=== PATIENT | male | born 1960 | race Caucasian/White ===

== ENCOUNTER 2021-08-30 19:15 | Inpatient (IN) | payer OTHER, SELFPAY ==
[2021-08-30 19:36] VITALS: BMI 32.5
[2021-08-30 21:00] VITALS: BP 173/98; PULSE 89; RESP 16; TEMP 36.8; O2SAT 92
[2021-08-30] MEDS: ACETAMINOPHEN 325 MG TABLET 650 MG PO (22:01)
--- NOTE | 2021-08-30 22:04 | DI.RAD.S_ITS ---
PROCEDURE: XR CHEST 1V INDICATIONS: hospital transfer, large Right pneumothorax s/p ct, eval size pneumo TECHNIQUE: One view of the chest was acquired. COMPARISON: [facility], CR, XR CHEST 2 VIEWS, 08/25/2021, 13:49. FINDINGS: Surgical changes and devices: Right-sided chest tube in place. Small residual right apical pneumothorax measures less than 1 cm to the thoracic apex. Minimal right basilar atelectasis. Multiple overlying leads and wires obscure the left lung base. Lungs and pleura: Lungs are clear. No pleural effusions or pneumothorax. Mediastinum: Mediastinal contours appear normal. Heart size is normal. Bones and chest wall: No suspicious bony lesions. Overlying soft tissues appear unremarkable. IMPRESSION: Improving right apically pneumothorax status post chest tube placement. Approved by: Tima Smith M.D. on 08/30/2021 at 22:23
--- NOTE | 2021-08-30 22:12 | P.HP_ITS ---
History of Present Illness History of Present Illness Date Patient Seen: 08/31/21 Time Patient Seen: 22:00 Chief complaint: Numo Thoraic Narrative: Mr. Romano is a 61M with PMH DM, HTN, HL, asthma who began developing shortness of breath about a week ago. He was seen and found to have a small right sided pneumothorax. He denied having any trauma. He was recommended to have outpatient follow up and was not recommended to have a chest tube placed at the time. He de veloped worsening shortness of breath and interval chest xray showed enlarging pneumothorax. He presented to OSH ED with shortness of breath, found to have large right sided pneumothorax and chest tube was placed. There was no bed available and he was transferred for further treatment. In the hospital he was noted to have a Na 131, bili 1.3, creatinine 0.8, alt/ast 100/65, WBC 7.7. COVID negative. On arrival to the hospital here, he state he was feeling some pain with deep respiration on the right sided near the chest tube insertion site. He had no shortness of breath. PMH: DM, HTN, HL Family history: mother with liver failure Social history: former smoker, active daily EtOH user 6 drinks daily Patient History Family & Social History Social History: household members none Prior Living Arrangements House Safety & Behavioral: Feels Safe in Current Yes Environment Been Physically Hurt or No Threatened By a Person Suicidal Ideation Description None Suicide Plan Description No Plan Tobacco & Substance use: Smoking Status Former smoker alcohol intake current alcohol intake frequency 3 or more drinks per day Substance Use Type does not use Meds Home Medications and Allergies Home Medications Medication Instructions Recorded Confirmed Type albuterol sulfate 90 mcg/actuation See Rx Instructions .ROUTE 08/30/21 08/30/21 History aerosol inhaler .COMPLEX PRN atorvastatin 20 mg tablet See Rx Instructions .ROUTE .COMPLEX 08/30/21 08/30/21 History irbesartan 150 See Rx Instructions .ROUTE .COMPLEX 08/30/21 08/30/21 History mg-hydrochlorothiazide 12.5 mg tablet metformin 500 mg tablet,extended See Rx Instructions .ROUTE .COMPLEX 08/30/21 08/30/21 History release 24 hr Allergies Allergy/AdvReac Type Severity Reaction Status Date / Time No Known Drug Allergies Allergy Verified 08/30/21 21:51 Review of Systems Review of Systems Narrative: 14 systems reviewed and negative aside from what is noted in HPI Exam Vital Signs (past 8 hours): - 08/30/21 21:00 08/30/21 23:42 Temperature 98.3 F 99.5 F Pulse Rate 89 79 Respiratory Rate 16 18 Blood Pressure 173/98 H 151/98 H Pulse Oximetry 92 96 Oxygen Delivery Method Nasal Cannula Oxygen Flow Rate 1 Narrative Exam Narrative: GEN: no acute distress HEENT: moist mucous membranes, PERRL NECK: no JVD, trachea midline CV: regular rate and rhythm, no murmurs PULM: clear bilaterally, no wheezes, rhonchi, rales CHEST: R sided chest tube in place ABD: soft, nontender, nondistended, no organomegaly, normal bowel sounds EXT: warm and well perfused with no edema NEURO: awake and alert, with no focal deficits Assessment & Plan Assessment & Plan narrative: Mr. Romano is a 61M with PMH DM, HTN, HL, asthma who developed significant spontaneous pneumothorax. 1. Spontaneous pneumothorax with acute hypoxemic respiratory failure -no history of any trauma -former smoker, likely etiology is ruptured bleb -no history of COPD per patient -chest tube placed in OSH ED with improvement of pneumothorax -follow up chest xray shows mild apical pneumothorax on the right -continue chest tube to suction for now -consult surgery for additional recommendations -repeat xray in am 2. Diabetes, type 2 -hold metformin -ordered insulin sliding scale 3. HTN -hold anti-hypertensives for now 4. HL -continue statin 5. Asthma, mild -not in exacerbation -continue PRN albuterol CODE: Full Proxy: Just Jacqueline, son I have utilized all available resources to reconcile patient's home medications. Time Spent With Patient Critical Care time: I spent a total of [] minutes of critical care time on this patient's care today; this time is exclusive of procedural time. Quality VTE Deep Vein Thrombosis/Pulmonary Embolism Present on Admission: No MIPS - Admit I confirm the patient?s Advance Care Plan is present, Code status is documented, Surrogate decision maker is in patient?s record [If Yes, STOP here]: Yes
[2021-08-30] MEDS: OXYCODONE IR 5 MG TABLET PO (23:37)
[2021-08-30 23:42] VITALS: BP 151/98; PULSE 79; RESP 18; TEMP 37.5; O2SAT 96
[2021-08-31] VITALS (8 sets, daily range): BP systolic 125–150; BP diastolic 71–90; PULSE 77–90; RESP 16–18; TEMP 36.4–38; O2SAT 92–95
[2021-08-31] MEDS: OXYCODONE IR 5 MG TABLET PO ×2 (05:30→20:01)
[2021-08-31 06:22] LABS: Add Manual Diff / Slide Review NO; Basophils Absolute Auto 0 /uL (0-100); Basophils Percent Auto 0.3 % (0-2); Eosinophils Absolute Auto 100 /uL (0-450); Eosinophils Percent Auto 0.7 % (2-4); Hematocrit 42.3 % (41-53); Hemoglobin 14.4 g/dL (13.5-17.5); Lymphocytes Absolute Auto 1500 /uL (1100-4500); Lymphocytes Percent Auto 17.9 % (25-40); Mean Corpuscular HGB Conc 33.9 % (30-36); Mean Corpuscular Hemoglobin 32.9 PG (26-34); Monocytes Absolute Auto 1200 /uL (0-900); Monocytes Percent Auto 14.3 % (3-14); Neutrophils Absolute Auto 5600 /uL (1500-7000); Neutrophils Percent Auto 66.8 % (50-75); Platelet Count 162 X10^3/uL (150-400); Red Blood Cell Count 4.37 X10^6/uL (4.5-5.9); Red Cell Distribution Width 13.9 % (11.6-14.8); White Blood Cell Count 8.4 X10^3/uL (4.5-11.0)
[2021-08-31 06:36] LABS: Alanine Aminotransferase 75 IU/L (<50); Albumin 4.6 g/dL (3.5-5.0); Albumin Globulin Ratio 1.3 (1.0-2.8); Alkaline Phosphatase 68 U/L (38-126); Aspartate Aminotransferase 54 IU/L (17-59); BUN Creatinine Ratio 15.1 (6-22); Bilirubin Total 1.7 mg/dL (0.2-1.3); Blood Urea Nitrogen 11 mg/dL (9-20); Calcium 9.5 mg/dL (8.4-10.2); Carbon Dioxide 32 mmol/L (22-32); Chloride 98 mmol/L (98-107); Estimated Glomerular Filt Rate > 60.0 mL/min (>60); Globulin 3.6 g/dL (1.7-4.1); Glucose 140 mg/dL (80-110); HEMOLYSIS < 15 (0-50); Potassium 3.8 mmol/L (3.4-5.1); Sodium 135 mmol/L (137-145); Total Protein 8.2 g/dL (6.3-8.2)
--- NOTE | 2021-08-31 07:00 | DI.RAD.S_ITS ---
PROCEDURE: XR CHEST 1V INDICATIONS: right pneumothorax s/p chest tube TECHNIQUE: One view of the chest was acquired. COMPARISON: [facility], CR, XR CHEST 2 VIEWS, 08/24/2021, 14:57. [facility], CR, XR CHEST 1V, 08/30/2021, 22:19. FINDINGS: Surgical changes and devices: Right-sided chest tube with the catheter projecting at the right apex. Lungs and pleura: Lungs appear clear. Emphysematous change. No significant pleural effusions or pneumothorax. Mediastinum: Mediastinal contours appear unchanged. Heart size is normal. Bones and chest wall: No suspicious bony lesions. Overlying soft tissues appear unremarkable. IMPRESSION: No pneumothorax demonstrated. Stable position of the right-sided chest tube. Dictated by: Juliocesar Bauman M.D. on 08/31/2021 at 9:56 Approved by: Juliocesar Bauman M.D. on 08/31/2021 at 9:58
[2021-08-31] MEDS: GABAPENTIN 300 MG CAPSULE PO ×3 (08:28→20:01)
[2021-08-31] MEDS: FOLIC ACID 1 MG TABLET PO (08:28)
[2021-08-31] MEDS: chlordiazePOXIDE 10 MG CAPSULE PO (08:28)
[2021-08-31] MEDS: MULTIVITAMIN 1 TABLET 1 TAB PO (08:28)
[2021-08-31] MEDS: THIAMINE 100 MG TABLET PO (08:28)
[2021-08-31] MEDS: SODIUM CHLORIDE 0.9% FLUSH 10 ML IV ×2 (09:02→20:01)
--- NOTE | 2021-08-31 10:39 | PM.CN ---
History of Present Illness Consult details Date Patient Seen: 08/31/21 Time Patient Seen: 14:00 Chief complaint: Pneumothorax Narrative: 61 y.o man transferred from OSH with a right spontaneous pneumothorax with chest tube in place. Hemodynamically stable. CXR from last night shows near resolution of pneumothorax. No previous chest surgery, history of asthma. Meds Home Medications and Allergies Home Medications Medication Instructions Recorded Confirmed Type albuterol sulfate 90 mcg/actuation See Rx Instructions .ROUTE 08/30/21 08/30/21 History aerosol inhaler .COMPLEX PRN atorvastatin 20 mg tablet See Rx Instructions .ROUTE .COMPLEX 08/30/21 08/30/21 History irbesartan 150 See Rx Instructions .ROUTE .COMPLEX 08/30/21 08/30/21 History mg-hydrochlorothiazide 12.5 mg tablet metformin 500 mg tablet,extended See Rx Instructions .ROUTE .COMPLEX 08/30/21 08/30/21 History release 24 hr Allergies Allergy/AdvReac Type Severity Reaction Status Date / Time No Known Drug Allergies Allergy Verified 08/30/21 21:51 Exam Vital Signs (past 8 hours): - 08/31/21 05:00 08/31/21 07:29 08/31/21 08:31 Temperature 99.8 F H 98.7 F Pulse Rate 77 83 Respiratory Rate 18 18 Blood Pressure 146/90 H 149/83 H Pulse Oximetry 93 93 95 Oxygen Delivery Method Nasal Cannula Oxygen Flow Rate 0 Narrative Exam Narrative: Gen-Adult man no acute distress Chest-Air leak in pleuraxac with coughing. Serosanginous drainage. Objective Labs Result Diagrams: 08/31/21 06:00 08/31/21 06:00 Labs: Laboratory Results - last 24 hr 08/31/21 08/31/21 06:00 06:00 WBC 8.4 RBC 4.37 L Hgb 14.4 Hct 42.3 MCV 97.0 MCH 32.9 MCHC 33.9 RDW 13.9 Plt Count 162 Neut % (Auto) 66.8 Lymph % (Auto) 17.9 L [place] % (Auto) 14.3 H Eos % (Auto) 0.7 L Baso % (Auto) 0.3 Neut # (Auto) 5600 Lymph # (Auto) 1500 [place] # (Auto) 1200 H Eos # (Auto) 100 Baso # (Auto) 0 Sodium 135 L Potassium 3.8 Chloride 98 Carbon Dioxide 32 BUN 11 Creatinine 0.73 Estimated GFR > 60.0 BUN/Creatinine Ratio 15.1 Glucose 140 H Calcium 9.5 Total Bilirubin 1.7 H AST 54 ALT 75 H Alkaline Phosphatase 68 Total Protein 8.2 Albumin 4.6 Globulin 3.6 Albumin/Globulin Ratio 1.3 PFSH Social History household members: none Tobacco & Substance Use Smoking Status: Former smoker alcohol intake: current Assessment & Plan Assessment and plan (1) Pneumothorax on right: Status: Acute Assessment & Plan narrative: 61M with a spontaneous right pneumothorax with chest tube. CXR from this AM reviewed no evidence of pneumothorax. On examination air leak in pleuravac observed. Keep chest tube to low wall suction can move to water seal tomorrow AM with CXR to follow. Time Spent With Patient Critical Care time: I spent a total of [] minutes of critical care time on this patient's care today; this time is exclusive of procedural time.
--- NOTE | 2021-08-31 12:09 | P.PN_ITS ---
Subjective Subjective Date Patient Seen: 08/31/21 Interval history: THIS IS A 61-YEAR-OLD MALE WITH NO HISTORY OF RECENT TRAUMA HAS A PAST MEDICAL HISTORY SIGNIFICANT FOR DIABETES, HYPERTENSION, HYPERLIPIDEMIA. HE IS OBESE. TRANSFERED TO THE HOSPITAL WITHIN PNEUMOTHORAX. CHEST TUBE IS IN PLACE. SURGERY TEAM IS ON BOARD THIS MORNING PATIENT FEELING MUCH BETTER DENIES ANY CHEST PAIN NO CHEST PRESSURE NO SHORTNESS OF BREATH NO INCREASING DYSPNEA ON EXERTION NO CHEST PALPITATIONS ALSO DENIES ANY NAUSEA OR VOMITING NO SIGNIFICANT ISSUES OVERNIGHT SINCE ADMISSION Exam Vital Signs (past 8 hours): - 08/31/21 05:00 08/31/21 07:29 08/31/21 08:31 Temperature 99.8 F H 98.7 F Pulse Rate 77 83 Respiratory Rate 18 18 Blood Pressure 146/90 H 149/83 H Pulse Oximetry 93 93 95 Oxygen Delivery Method Nasal Cannula Oxygen Flow Rate 0 Narrative Exam Narrative: NO ACUTE DISTRESS. PATIENT IS ALERT ORIENTED X3. APPEARS MUCH OLDER THAN STATED AGE. OBESE. POOR DENTITION VITAL SIGNS STABLE HEAD ATRAUMATIC NORMOCEPHALIC NECK : SUPPLE WITHOUT ADENOPATHY NO CAROTID BRUITS EYE: EOMI, PERRLA, NORMAL CONJUNCTIVA; NO JAUNDICE CHEST: REGULAR RATE. NO RUBS. PMI IS NON DISPLACED. NO MURMURS; NORMAL S1- S2 PULMONARY: CHEST TUBE IN PLACE ON THE RIGHT. MILD BIBASILAR CRACKLES NOTED; NO INCREASED DULLNESS TO PERCUSSION ABDOMEN: OBESE BUT SOFT. NONTENDER. NONDISTENDED. BOWEL SOUNDS ARE PRESENT IN ALL 4 QUADRANTS. NO MASS. EXTREMITIES: NO EDEMA.. NO CYANOSIS CLUBBING NOTED. NEURO: CRANIAL NERVES 2-12 GROSSLY INTACT. NO FOCAL NEUROLOGICAL DEFICIT NOTED. MSK: NORMAL RANGE OF MOTION FOR AGE. NO JOINT EFFUSION. SKIN: DRESSING NOTED ON THE RIGHT AT THE SITE OF THE CHEST TUBE. NO SIGN OF INFECTION : NORMAL EXTERNAL GENITALIA. PSYCH : APPROPRIATE MOOD AND AFFECT. ALERT AWAKE ORIENTED X3 Objective Labs Result Diagrams: 08/31/21 06:00 08/31/21 06:00 Labs: Laboratory Results - last 24 hr 08/31/21 08/31/21 06:00 06:00 WBC 8.4 RBC 4.37 L Hgb 14.4 Hct 42.3 MCV 97.0 MCH 32.9 MCHC 33.9 RDW 13.9 Plt Count 162 Neut % (Auto) 66.8 Lymph % (Auto) 17.9 L [place] % (Auto) 14.3 H Eos % (Auto) 0.7 L Baso % (Auto) 0.3 Neut # (Auto) 5600 Lymph # (Auto) 1500 [place] # (Auto) 1200 H Eos # (Auto) 100 Baso # (Auto) 0 Sodium 135 L Potassium 3.8 Chloride 98 Carbon Dioxide 32 BUN 11 Creatinine 0.73 Estimated GFR > 60.0 BUN/Creatinine Ratio 15.1 Glucose 140 H Calcium 9.5 Total Bilirubin 1.7 H AST 54 ALT 75 H Alkaline Phosphatase 68 Total Protein 8.2 Albumin 4.6 Globulin 3.6 Albumin/Globulin Ratio 1.3 PFSH Social History household members: none Smoking Status: Former smoker alcohol intake: current Assessment & Plan Assessment & Plan narrative: PROBLEM LIST SPONTANEOUS PNEUMOTHORAX. CHEST TUBE IN PLACE. MORBID OBESITY POSSIBLE COPD WITH SIGNS OF ACUTE EXACERBATION ESSENTIAL HYPERTENSION DIABETES TYPE 2 PER HISTORY. [id number] HYPERLIPIDEMIA PER HISTORY TRANSAMINITIS. MONITOR ONLY FOR NOW PLAN DEFER CHEST TUBE MANAGEMENT TO THE SURGICAL TEAM PATIENT APPEARED TO BE IMPROVING CLINICALLY CHEST X-RAY DONE THIS MORNING SHOWING RESOLUTION OF THE THE PNEUMOTHORAX WILL CONTINUE TO FOLLOW CLOSELY REPEAT CHEST X-RAY AND ABG INDICATED CLINICALLY INCENTIVE SPIROMETER BE ORDERED WHILE AWAKE STRICT BLOOD PRESSURE AND BLOOD SUGAR CONTROL PATIENT WILL BE STARTED BACK ON HOME MEDS HOWEVER WILL HOLD HYDROCHLOROTHIAZIDE CONTINUE METFORMIN WELL ADDING LOSARTAN MOBILIZE PATIENT WELL TOLERATED ADDITIONAL MANAGEMENT PER CLINICAL COURSE DISCHARGE PER CLINICAL COURSE AND SURGICAL TEAM CLEARANCE Time Spent With Patient Critical Care time: I spent a total of [] minutes of critical care time on this patient's care today; this time is exclusive of procedural time. Quality VTE Deep Vein Thrombosis/Pulmonary Embolism Present on Admission: No
[2021-08-31] MEDS: LOSARTAN 25 MG TABLET PO (13:36)
[2021-08-31] MEDS: chlordiazePOXIDE 25 MG CAPSULE PO ×2 (15:13→20:01)
--- NOTE | 2021-08-31 15:56 | CM.DPNOTE ---
DCP/Assessment: Reviewed chart. Patient is a 61yr old male admitted to [facility] with spontaneous pneumothorax requiring chest tube. Primary payor is [facility]. PCP listed on demographic sheet. Met with patient explained CM/SW role. Patient reports that he resides alone in [place]. Patient's significant other/Wanda can assist him if needed at time of d/c. Patient hopeful that he will be able to d/c home once chest tube removed. Patient admits to consuming small amounts of alcohol daily. Patient denies any issues related to drinking alcohol daily. P: Home when stable. KJS Discharge Planning/Care Management CM Discharge Assessment Start: 08/31/21 15:54 Freq: Status: Active Protocol: Document 08/31/21 15:54 KJS (Rec: 08/31/21 15:55 KJS [id number]) Discharge Planning Assessment Assigned Business Process Associate KHOI Black Contact Information Wanda (signifcant other) # [phone] Advance Directives? No History Provided By Patient,Medical Record Prior Living Arrangements House Household Members none Type of transporation used prior to Drives own vehicle admit Independent with ADL's Yes Is patient alert and oriented? Yes Caregiver for Another No Barriers to Discharge No Discharge Plan Home Transportation Arrangement Significant other can provide transport. Whiteboard Updated in Patient Room with Yes name and ext. # of Business Process Associate Review Status In Process Next Review Type Continued Stay Review
--- NOTE | 2021-08-31 17:08 | PC.NURSE ---
Notified by HIDE WASHER that patient had 17 beat run of VTACH. Patient assessed, sitting up in bed having dinner, denies chest pain, palpitations or other complaints. States he is actually feeling pretty well and has been using his Incentive spirometer. BP is 129/76. Dr. Carty notified. No new orders received, continue to monitor.
[2021-08-31] MEDS: METFORMIN HCL 500 MG TABLET PO (17:21)
[2021-08-31] MEDS: ACETAMINOPHEN 325 MG TABLET 650 MG PO (20:00)
[2021-08-31] MEDS: ATORVASTATIN 20 MG TABLET PO (20:02)
[2021-09-01] VITALS (11 sets, daily range): BP systolic 108–153; BP diastolic 70–92; PULSE 76–118; RESP 16–22; TEMP 36.4–37.2; O2SAT 89–95
--- NOTE | 2021-09-01 | DI.RAD.S_ITS ---
PROCEDURE: XR CHEST 1V INDICATIONS: SOB, ??repeat pneumo TECHNIQUE: One view of the chest was acquired. COMPARISON: [facility], CR, XR CHEST 1V, 08/31/2021, 5:07. [facility], CR, XR CHEST 1V, 09/01/2021, 17:51. FINDINGS: Surgical changes and devices: None. Lungs and pleura: Large right pneumothorax. Emphysematous change. Mediastinum: Mediastinal contours appear normal. Heart size is normal. Bones and chest wall: No suspicious bony lesions. Overlying soft tissues appear unremarkable. IMPRESSION: Interval redevelopment of a large right pneumothorax. Comment: Findings were discussed with Dr. Campos of the ED on 09/01/[address] Campos will relay the message to Dr. Clark Dictated by: Jose Luis Dickens M.D. on 09/01/2021 at 20:52 Approved by: Jose Luis Dickens M.D. on 09/01/2021 at 20:56
[2021-09-01] MEDS: OXYCODONE IR 5 MG TABLET PO ×3 (05:16→15:44)
--- NOTE | 2021-09-01 07:45 | DI.RAD.S_ITS ---
PROCEDURE: XR CHEST 1V INDICATIONS: PTX TECHNIQUE: One view of the chest was acquired. COMPARISON: [facility], CR, XR CHEST 1V, 08/31/2021, 5:07. FINDINGS: Surgical changes and devices: Right-sided chest tube is stable. Lungs and pleura: Lungs are clear. No pleural effusions or pneumothorax. Mediastinum: Mediastinal contours appear normal. Heart size is normal. Bones and chest wall: No suspicious bony lesions. Overlying soft tissues appear unremarkable. IMPRESSION: No pneumothorax. Stable right-sided chest tube. Dictated by: Kelly Whitaker MD, PhD on 09/01/2021 at 13:11 Approved by: Kelly Whitaker MD, PhD on 09/01/2021 at 13:12
[2021-09-01] MEDS: ACETAMINOPHEN 325 MG TABLET 650 MG PO (07:57)
[2021-09-01] MEDS: FOLIC ACID 1 MG TABLET PO (08:01)
[2021-09-01] MEDS: MULTIVITAMIN 1 TABLET 1 TAB PO (08:01)
[2021-09-01] MEDS: THIAMINE 100 MG TABLET PO (08:01)
[2021-09-01] MEDS: GABAPENTIN 300 MG CAPSULE PO ×3 (08:01→21:01)
[2021-09-01] MEDS: chlordiazePOXIDE 25 MG CAPSULE PO ×3 (08:07→22:07)
[2021-09-01] MEDS: LOSARTAN 25 MG TABLET PO (08:07)
[2021-09-01] MEDS: METFORMIN HCL 500 MG TABLET PO ×2 (08:09→17:15)
[2021-09-01] MEDS: SODIUM CHLORIDE 0.9% FLUSH 10 ML IV ×2 (08:10→21:02)
--- NOTE | 2021-09-01 08:19 | PM.PN.1 ---
Subjective Subjective Date Patient Seen: 09/01/21 Time Patient Seen: 08:19 Interval history: No interval events. Breathing comfortably. Chest tube to suction yesterday. Exam Vital Signs (past 8 hours): - 09/01/21 01:00 09/01/21 06:00 09/01/21 07:54 Temperature 98.6 F Pulse Rate 76 Respiratory Rate 18 16 Blood Pressure 153/92 H Pulse Oximetry 94 94 09/01/21 08:00 Temperature 98.1 F Pulse Rate 77 Respiratory Rate 16 Blood Pressure 132/77 Pulse Oximetry 94 Oxygen Delivery Method Nasal Cannula Oxygen Flow Rate 1 Narrative Exam Narrative: Adult male with R chest tube serous drainage no air leak. Objective Labs Result Diagrams: 08/31/21 06:00 08/31/21 06:00 [facility] Social History household members: none Smoking Status: Former smoker alcohol intake: current Assessment & Plan Assessment & Plan narrative: 61y.o man with spontaneous R pneumothorax with chest tube no air leak. -Chest tube was switched to water seal this AM, CXR to follow. If no residual pneumothorax will attempt to remove tube this afternoon or tomorrow. Time Spent With Patient Critical Care time: I spent a total of [] minutes of critical care time on this patient's care today; this time is exclusive of procedural time. Quality VTE Deep Vein Thrombosis/Pulmonary Embolism Present on Admission: No
--- NOTE | 2021-09-01 09:01 | PM.PN.1 ---
Subjective Subjective Date Patient Seen: 09/01/21 Interval history: THIS IS A 61-YEAR-OLD MALE WITH NO HISTORY OF RECENT TRAUMA HAS A PAST MEDICAL HISTORY SIGNIFICANT FOR DIABETES, HYPERTENSION, HYPERLIPIDEMIA.? HE IS OBESE. TRANSFERED TO THE HOSPITAL WITHIN PNEUMOTHORAX. CHEST TUBE IS IN PLACE. SURGERY TEAM IS ON BOARD THIS MORNING NO CHEST PAIN NO CHEST PRESSURE NO SHORTNESS OF BREATH NO INCREASING DYSPNEA ON EXERTION NO CHEST PALPITATIONS NO SIGNIFICANT ISSUES OVERNIGHT SINCE ADMISSION Exam Vital Signs (past 8 hours): - 09/01/21 06:00 09/01/21 07:54 09/01/21 08:00 Temperature 98.6 F 98.1 F Pulse Rate 76 77 Respiratory Rate 16 16 Blood Pressure 153/92 H 132/77 Pulse Oximetry 94 94 94 Oxygen Delivery Method Nasal Cannula Oxygen Flow Rate 1 Narrative Exam Narrative: NO ACUTE DISTRESS.? PATIENT IS ALERT ORIENTED X3.? APPEARS MUCH OLDER THAN STATED AGE.? OBESE.? POOR DENTITION VITAL SIGNS STABLE HEAD ATRAUMATIC NORMOCEPHALIC NECK : SUPPLE WITHOUT ADENOPATHY NO CAROTID BRUITS EYE:? EOMI, PERRLA, NORMAL CONJUNCTIVA; NO JAUNDICE CHEST:? REGULAR RATE.? ? NO RUBS.? PMI IS NON DISPLACED.? NO MURMURS; NORMAL S1-S2 PULMONARY:? CHEST TUBE IN PLACE ON THE RIGHT.? MILD BIBASILAR CRACKLES NOTED; NO INCREASED DULLNESS TO PERCUSSION ABDOMEN:? OBESE BUT SOFT.? NONTENDER.? NONDISTENDED.? BOWEL SOUNDS ARE PRESENT IN ALL 4 QUADRANTS.? NO MASS. EXTREMITIES: NO EDEMA..? NO CYANOSIS CLUBBING NOTED. NEURO:? CRANIAL NERVES 2-12 GROSSLY INTACT. NO FOCAL NEUROLOGICAL DEFICIT NOTED. MSK:? NORMAL RANGE OF MOTION FOR AGE.? NO JOINT EFFUSION. SKIN:? DRESSING NOTED ON THE RIGHT AT THE SITE OF THE CHEST TUBE.? NO SIGN OF INFECTION :? NORMAL EXTERNAL GENITALIA. PSYCH :? APPROPRIATE MOOD AND AFFECT.? ALERT AWAKE ORIENTED X3 Objective Labs Result Diagrams: 08/31/21 06:00 08/31/21 06:00 [facility] Social History household members: none Smoking Status: Former smoker alcohol intake: current Assessment & Plan Assessment & Plan narrative: PROBLEM LIST SPONTANEOUS PNEUMOTHORAX.? CHEST TUBE IN PLACE. NOW ON WATER-SEAL MORBID OBESITY. EXTENSIVE COUNSELING GIVEN POSSIBLE COPD WITHOUT SIGNS OF ACUTE EXACERBATION. MONITOR CLOSELY ESSENTIAL HYPERTENSION. CONTINUE HOME MEDS DIABETES TYPE 2 PER HISTORY.? [id number] HYPERLIPIDEMIA PER HISTORY TRANSAMINITIS.? MONITOR ONLY FOR NOW PLAN 09/01 PATIENT REMAINED CLINICALLY IMPROVED ASSISTANCE FROM THE SURGERY TEAM GREATLY APPRECIATED PLAN TO CHANGE TO CHEST TUBE FROM SUCTION TO WATER SEAL IS NOTED WITH A POSSIBLE REMOVAL OF THE CHEST TO EITHER THIS AFTERNOON OR IN THE MORNING IF CLINICALLY INDICATED FOLLOW WITH SERIAL CHEST X-RAY CLOSELY GET ABG IF ANY SIGN OF RESPIRATORY FAILURE DEVELOPS ADDITIONAL MANAGEMENT PER CLINICAL COURSE WILL DISCHARGE ONCE CLEARED BY THE SURGERY TEAM 08/31 DEFER CHEST TUBE MANAGEMENT TO THE SURGICAL TEAM PATIENT APPEARED TO BE IMPROVING CLINICALLY CHEST X-RAY DONE THIS MORNING? SHOWING RESOLUTION OF THE THE PNEUMOTHORAX WILL CONTINUE TO FOLLOW CLOSELY REPEAT CHEST X-RAY AND ABG INDICATED CLINICALLY INCENTIVE SPIROMETER BE ORDERED WHILE AWAKE STRICT BLOOD PRESSURE AND BLOOD SUGAR CONTROL PATIENT WILL BE STARTED BACK ON HOME MEDS HOWEVER WILL HOLD HYDROCHLOROTHIAZIDE CONTINUE METFORMIN WELL ADDING LOSARTAN MOBILIZE PATIENT WELL TOLERATED ADDITIONAL MANAGEMENT PER CLINICAL COURSE DISCHARGE PER CLINICAL COURSE AND SURGICAL TEAM RON Time Spent With Patient Critical Care time: I spent a total of [] minutes of critical care time on this patient's care today; this time is exclusive of procedural time. Quality VTE Deep Vein Thrombosis/Pulmonary Embolism Present on Admission: No
[2021-09-01] MEDS: INSULIN LISPRO 100 UNIT/ML 3ML VIAL SUBCUT (17:13)
--- NOTE | 2021-09-01 17:50 | DI.RAD.S_ITS ---
PROCEDURE: XR CHEST 1V INDICATIONS: chest tube taken out TECHNIQUE: One view of the chest was acquired. COMPARISON: [facility], CR, XR CHEST 1V, 09/01/2021, 8:02. FINDINGS: Surgical changes and devices: None. Lungs and pleura: Severe emphysematous change. No identifiable right pneumothorax. Lungs are clear. No pleural effusions or pneumothorax. Mediastinum: Mediastinal contours appear normal. Heart size is normal. Bones and chest wall: No suspicious bony lesions. Overlying soft tissues appear unremarkable. IMPRESSION: No identifiable right pneumothorax post chest tube removal. Severe emphysematous change. Dictated by: Jose Luis Dickens M.D. on 09/01/2021 at 18:19 Approved by: Jose Luis Dickens M.D. on 09/01/2021 at 18:20
[2021-09-01] MEDS: LORazepam 0.5 MG TABLET PO (21:02)
[2021-09-01] MEDS: ATORVASTATIN 20 MG TABLET PO (21:02)
--- NOTE | 2021-09-01 21:04 | RT ---
Was performing pulse ox checks on pt. At 2024, found pt on RA, SpO2 89%-90%, RR 22, BS clear L > R, absent RML/RLL, HR 118-120. Pt stated before SOB happened, pt went up to use the bathroom and wash hands while using walker, felt fine. When pt sat down in bed, pt suddenly felt SOB. CHARLOTTE Lepe and CHARLOTTE Bell aware. Placed pt on 2 LPM NC, SpO2 increased to 92%-93%, WOB slightly decreased. Informed CARMEN Clark about pt's sudden SOB. CXR ordered for another possible R PNX. At 2054, placed pt on 15 LPM NRB to help with nitrogen wash out to resolve PNX until another possible chest tube insertion. CARMEN Clark aware and is OK with NRB.
--- NOTE | 2021-09-01 21:43 | DI.RAD.S_ITS ---
PROCEDURE: XR CHEST 1V INDICATIONS: chest tube placement TECHNIQUE: One view of the chest was acquired. COMPARISON: [facility], CR, XR CHEST 1V, 09/01/2021, 20:40. FINDINGS: Surgical changes and devices: There is a new right chest tube. Lungs and pleura: There is interval response of the right lung with a persistent small right pneumothorax, decreased from the prior study. There are persistent medial bibasilar opacities consistent with atelectasis or consolidation. No left pneumothorax. No pleural effusions. Mediastinum: There is decreased leftward mediastinal shift. Heart size is normal. Bones and chest wall: No suspicious bony lesions. Overlying soft tissues appear unremarkable. IMPRESSION: 1. Decreased but persistent small right pneumothorax. No evidence of tension. 2. Medial bibasilar opacities consistent with atelectasis or consolidation. Dictated by: Caleb Parker M.D. on 09/01/2021 at 21:58 Approved by: Caleb Parker M.D. on 09/01/2021 at 22:00
[2021-09-01] MEDS: HYDROMORPHONE 0.5 MG INJ 1 MG IV (21:45)
[2021-09-01] MEDS: LORazepam 2 MG/ML INJ IV (21:45)
--- NOTE | 2021-09-01 22:06 | PC.NURSE ---
2044 Pt. C/O anxiety, heart rate 115 & resp. rate 28 elevated. RT was here to checked on Pt. noted & reported to RN that Rt. anterior lobes lung sound was diminished. CXR ordered & hospitalist ordered to transfer pt. closer to ICU. Pt. transferred & report given to Jeannine PORTER.
[2021-09-02] VITALS (9 sets, daily range): BP systolic 116–138; BP diastolic 67–89; PULSE 68–116; RESP 16–20; TEMP 36.4–37.5; O2SAT 94–99
--- NOTE | 2021-09-02 06:50 | PC.NURSE ---
Pt arrived to [facility] in some apparent respiratory distress, vital signs reflecting w/ HTN and tachycardia. Chest tube to be inserted. Pt given ativan 2 mg and dilaudid 1 mg prior to procedure. CT inserted by provider Rajni, set to wall suction, no leak. Pt's discomfort alleviated. Pt stable on 3L NC sat ~93%.
--- NOTE | 2021-09-02 07:45 | DI.RAD.S_ITS ---
PROCEDURE: XR CHEST 1V INDICATIONS: f/u Right pneumothorax TECHNIQUE: One view of the chest was acquired. COMPARISON: [facility], , XR CHEST 1V, 09/01/2021, 21:41. FINDINGS: Surgical changes and devices: Chest right chest tube appears unchanged in position. Lungs and pleura: There is a persistent small right residual pneumothorax which appears unchanged from the prior study. Medial bibasilar opacities are demonstrated consistent with with atelectasis or consolidation. There is slightly increased indistinct opacities peripherally in the right lung which may represent a contusion or re-expansion pulmonary edema. There are suspected small bilateral pleural effusions. Mediastinum: Mediastinal contours appear unchanged. Heart size is normal. Bones and chest wall: No suspicious bony lesions. Overlying soft tissues appear unremarkable. IMPRESSION: 1. Small residual right pneumothorax appears unchanged. 2. Medial bibasilar atelectasis or consolidation. 3. Indistinct peripheral opacities in the right lung suggestive of pulmonary contusion or re-expansion pulmonary edema. Dictated by: Caleb Parker M.D. on 09/02/2021 at 9:14 Approved by: Caleb Parker M.D. on 09/02/2021 at 9:16
[2021-09-02] MEDS: FOLIC ACID 1 MG TABLET PO (08:39)
[2021-09-02] MEDS: METFORMIN HCL 500 MG TABLET PO (08:39)
[2021-09-02] MEDS: chlordiazePOXIDE 25 MG CAPSULE PO (08:39)
[2021-09-02] MEDS: GABAPENTIN 300 MG CAPSULE PO ×3 (08:40→21:39)
[2021-09-02] MEDS: LOSARTAN 25 MG TABLET PO (08:40)
[2021-09-02] MEDS: THIAMINE 100 MG TABLET PO (08:40)
[2021-09-02] MEDS: SODIUM CHLORIDE 0.9% FLUSH 10 ML IV ×2 (08:40→21:41)
[2021-09-02] MEDS: MULTIVITAMIN 1 TABLET 1 TAB PO (08:40)
--- NOTE | 2021-09-02 10:49 | P.PN_ITS ---
Subjective Subjective Date Patient Seen: 09/02/21 Interval history: THIS IS A 61-YEAR-OLD MALE WITH NO HISTORY OF RECENT TRAUMA HAS A PAST MEDICAL HISTORY SIGNIFICANT FOR DIABETES, HYPERTENSION, HYPERLIPIDEMIA.? HE IS OBESE. TRANSFERED TO [facility] WITH PNEUMOTHORAX. CHEST TUBE IS IN PLACE. SURGERY TEAM IS ON BOARD 12 PM CHEST TUBE WAS REMOVED HOWEVER, OVERNIGHT, PATIENT DEVELOPED SOME SHORTNESS OF BREATH PNEUMOTHORAX ONCE AGAIN EXHIBITED ON X-RAY CHEST TUBE REINSERTED. THIS MORNING PATIENT DID NOT HAVE ANY SIGNIFICANT COMPLAINT ? HE HAD SOME QUESTIONS REGARDING WHY THE RECURRENT PNEUMOTHORAX OTHERWISE NO CHEST PAIN NO CHEST PRESSURE NO SHORTNESS OF BREATH NO INCREASING DYSPNEA ON EXERTION NO CHEST PALPITATIONS Exam Vital Signs (past 8 hours): - 09/02/21 04:00 09/02/21 08:00 09/02/21 08:40 Temperature 97.8 F 97.7 F Pulse Rate 84 86 88 Respiratory Rate 18 16 Blood Pressure 138/89 128/76 128/76 Pulse Oximetry 96 94 09/02/21 08:55 Temperature Pulse Rate Respiratory Rate Blood Pressure Pulse Oximetry 95 Oxygen Delivery Method Nasal Cannula Oxygen Flow Rate 3 Narrative Exam Narrative: NO ACUTE DISTRESS.? PATIENT IS ALERT ORIENTED X3.? APPEARS MUCH OLDER THAN STATED AGE.? OBESE.? POOR DENTITION VITAL SIGNS STABLE HEAD ATRAUMATIC NORMOCEPHALIC NECK : SUPPLE WITHOUT ADENOPATHY NO CAROTID BRUITS EYE:? EOMI, PERRLA, NORMAL CONJUNCTIVA; NO JAUNDICE CHEST:? REGULAR RATE.? ? NO RUBS.? PMI IS NON DISPLACED.? NO MURMURS; NORMAL S1- S2 PULMONARY:? CHEST TUBE IN PLACE ON THE RIGHT.? MILD BIBASILAR CRACKLES NOTED; NO WHEEZING. NO RALES . NO CRACKLES ABDOMEN:? OBESE BUT SOFT.? NONTENDER.? NONDISTENDED.? BOWEL SOUNDS ARE PRESENT IN ALL 4 QUADRANTS.? NO MASS. EXTREMITIES: NO EDEMA..? NO CYANOSIS CLUBBING NOTED. NEURO:? CRANIAL NERVES 2-12 GROSSLY INTACT. NO FOCAL NEUROLOGICAL DEFICIT NOTED. MSK:? NORMAL RANGE OF MOTION FOR AGE.? NO JOINT EFFUSION. SKIN:? DRESSING NOTED ON THE RIGHT AT THE SITE OF THE CHEST TUBE.? NO SIGN OF INFECTION :? NORMAL EXTERNAL GENITALIA. PSYCH :? APPROPRIATE MOOD AND AFFECT.? ALERT AWAKE ORIENTED X3 Objective Labs Result Diagrams: 08/31/21 06:00 08/31/21 06:00 [facility] Social History household members: none Smoking Status: Former smoker alcohol intake: current Assessment & Plan Assessment & Plan narrative: PROBLEM LIST SPONTANEOUS PNEUMOTHORAX.? CHEST TUBE REINSERTED 09/01 OVERNIGHT MORBID OBESITY.? EXTENSIVE COUNSELING GIVEN POSSIBLE COPD WITHOUT SIGNS OF ACUTE EXACERBATION.? MONITOR CLOSELY ESSENTIAL HYPERTENSION.? CONTINUE HOME MEDS DIABETES TYPE 2 PER HISTORY.? [id number] HYPERLIPIDEMIA PER HISTORY TRANSAMINITIS.? NO ACUTE INPATIENT TREATMENT INDICATED. MONITOR ONLY FOR NOW POSSIBLE ETOH ABUSE. ON LIBRIUM PLAN 09/02 PATIENT WILL BE KEPT ON WALL CONTINUOUS SUCTION FOR NOW FOLLOW SURGERY TEAM RECOMMENDATIONS MONITOR VITAL SIGNS CLOSELY REPEAT CHEST X-RAYS HERE TO FOLLOW CONSIDER ABG IF INDICATED CLINICALLY WELL WILL GET LABS FOR THE MORNING CONTINUE TO ENCOURAGE PATIENT TO USE INCENTIVE SPIROMETER DEVICE ORDERED PATIENT TO BE OUT OF BED AND IN CHAIR WITH EACH MEAL WILL START TAPERING LIBRIUM. SWITCH FROM LIBRIUM 25 MG T.I.D. TO 10 MG. WILL CONTINUE TO TAPER INDICATED NEEDED ATIVAN ORDERED MONITOR FOR ANY SIGN OF WITHDRAWAL ADDITIONALLY MANAGEMENT PER CLINICAL COURSE 09/01 ?PATIENT REMAINED CLINICALLY IMPROVED ?ASSISTANCE FROM THE? SURGERY TEAM GREATLY APPRECIATED ?PLAN TO? CHANGE TO CHEST TUBE? FROM SUCTION TO WATER SEAL IS NOTED ?WITH A POSSIBLE REMOVAL OF THE CHEST TO EITHER THIS AFTERNOON OR IN THE MORNING IF? CLINICALLY INDICATED ?FOLLOW WITH SERIAL CHEST X-RAY CLOSELY ?GET ABG IF ANY SIGN OF RESPIRATORY FAILURE DEVELOPS ? ADDITIONAL MANAGEMENT PER CLINICAL COURSE ?WILL? DISCHARGE ONCE CLEARED BY THE? SURGERY TEAM 08/31 DEFER CHEST TUBE MANAGEMENT TO THE SURGICAL TEAM PATIENT APPEARED TO BE IMPROVING CLINICALLY CHEST X-RAY DONE THIS MORNING? SHOWING RESOLUTION OF THE THE PNEUMOTHORAX WILL CONTINUE TO FOLLOW CLOSELY REPEAT CHEST X-RAY AND ABG INDICATED CLINICALLY INCENTIVE SPIROMETER BE ORDERED WHILE AWAKE STRICT BLOOD PRESSURE AND BLOOD SUGAR CONTROL PATIENT WILL BE STARTED BACK ON HOME MEDS HOWEVER WILL HOLD HYDROCHLOROTHIAZIDE CONTINUE METFORMIN WELL ADDING LOSARTAN MOBILIZE PATIENT WELL TOLERATED ADDITIONAL MANAGEMENT PER CLINICAL COURSE DISCHARGE PER CLINICAL COURSE AND SURGICAL TEAM CLEARANCE Time Spent With Patient Critical Care time: I spent a total of [] minutes of critical care time on this patient's care today; this time is exclusive of procedural time. Quality VTE Deep Vein Thrombosis/Pulmonary Embolism Present on Admission: No
--- NOTE | 2021-09-02 11:49 | PM.PN.1 ---
Subjective Subjective Date Patient Seen: 09/02/21 Time Patient Seen: 11:50 Interval history: chest tube was removed yesterday afternoon the post pull chest x-ray showed no evidence of pneumothorax however several hours later as he was preparing to discharge he suddenly felt short of breath and there was redemonstration of pneumothorax chest tube was replaced. Feels well this morning Exam Vital Signs (past 8 hours): - 09/02/21 04:00 09/02/21 08:00 09/02/21 08:40 Temperature 97.8 F 97.7 F Pulse Rate 84 86 88 Respiratory Rate 18 16 Blood Pressure 138/89 128/76 128/76 Pulse Oximetry 96 94 09/02/21 08:55 Temperature Pulse Rate Respiratory Rate Blood Pressure Pulse Oximetry 95 Oxygen Delivery Method Nasal Cannula Oxygen Flow Rate 3 Narrative Exam Narrative: Gen-Alert and oriented Chest-small air leak observed. Objective Labs Result Diagrams: 08/31/21 06:00 08/31/21 06:00 [facility] Social History household members: none Smoking Status: Former smoker alcohol intake: current Assessment & Plan Assessment and plan (1) Pneumothorax on right: Status: Acute Plan 61M R pmneumothorax -Chest Tube to low wall suction today -CXR tomorrow morning if no leak can move to water seal. Time Spent With Patient Critical Care time: I spent a total of [] minutes of critical care time on this patient's care today; this time is exclusive of procedural time. Quality VTE Deep Vein Thrombosis/Pulmonary Embolism Present on Admission: No
[2021-09-02] MEDS: ENOXAPARIN 40 MG/0.4 ML SYRINGE SUBCUT (12:52)
[2021-09-02] MEDS: chlordiazePOXIDE 10 MG CAPSULE PO ×2 (15:18→21:39)
[2021-09-02] MEDS: LORazepam 2 MG/ML INJ 1 MG IV (15:18)
[2021-09-02] MEDS: TAMSULOSIN 0.4 MG CAPSULE PO (15:18)
--- NOTE | 2021-09-02 15:34 | PC.NURSE ---
Clemons inserted for urinary retention. Pt anxious during and after. Medicated with lorazepam for anxiety. 1000 ml jordon clear urine drained immediately into clemons after placement. Securement device placed on upper left thigh.
[2021-09-02] MEDS: INSULIN LISPRO 100 UNIT/ML 3ML VIAL SUBCUT (17:28)
[2021-09-02] MEDS: METFORMIN XR 500 MG TABLET 1000 MG PO (17:28)
[2021-09-02] MEDS: ACETAMINOPHEN 325 MG TABLET 650 MG PO (19:59)
[2021-09-02] MEDS: OXYCODONE IR 5 MG TABLET PO (19:59)
[2021-09-02] MEDS: ATORVASTATIN 20 MG TABLET PO (21:39)
[2021-09-02] MEDS: SENNOSIDES 8.6 MG TABLET 17.2 MG PO (21:39)
--- NOTE | 2021-09-02 21:58 | PC.NURSE ---
2100- Right chest tube to 20cm wall suction per order. Small amount of Serosanginous fluid in chamber. Breathsounds appreciated to the right lung posterior in all baugh with crackles. No crepitus appreciated with assessment. Patient on 2 liters cannula will monitor closely.
[2021-09-03] VITALS (7 sets, daily range): BP systolic 116–136; BP diastolic 63–68; PULSE 64–87; RESP 16–20; TEMP 36.7–37.1; O2SAT 94–100
[2021-09-03 06:03] LABS: Add Manual Diff / Slide Review NO; Basophils Absolute Auto 0 /uL (0-100); Basophils Percent Auto 0.5 % (0-2); Eosinophils Absolute Auto 200 /uL (0-450); Eosinophils Percent Auto 2.3 % (2-4); Hematocrit 37.7 % (41-53); Hemoglobin 12.9 g/dL (13.5-17.5); Lymphocytes Absolute Auto 1500 /uL (1100-4500); Lymphocytes Percent Auto 20.8 % (25-40); Mean Corpuscular HGB Conc 34.1 % (30-36); Mean Corpuscular Hemoglobin 33.3 PG (26-34); Mean Corpuscular Volume 97.6 fL (80-100); Monocytes Absolute Auto 1000 /uL (0-900); Monocytes Percent Auto 13.3 % (3-14); Neutrophils Absolute Auto 4500 /uL (1500-7000); Neutrophils Percent Auto 63.1 % (50-75); Platelet Count 150 X10^3/uL (150-400); Red Blood Cell Count 3.87 X10^6/uL (4.5-5.9); Red Cell Distribution Width 13.9 % (11.6-14.8); White Blood Cell Count 7.2 X10^3/uL (4.5-11.0)
[2021-09-03 06:11] LABS: Alanine Aminotransferase 59 IU/L (<50); Albumin 3.9 g/dL (3.5-5.0); Albumin Globulin Ratio 1.1 (1.0-2.8); Alkaline Phosphatase 60 U/L (38-126); Aspartate Aminotransferase 72 IU/L (17-59); BUN Creatinine Ratio 23.5 (6-22); Bilirubin Total 0.7 mg/dL (0.2-1.3); Blood Urea Nitrogen 16 mg/dL (9-20); Calcium 9.2 mg/dL (8.4-10.2); Carbon Dioxide 30 mmol/L (22-32); Chloride 101 mmol/L (98-107); Estimated Glomerular Filt Rate > 60.0 mL/min (>60); Globulin 3.4 g/dL (1.7-4.1); Glucose 134 mg/dL (80-110); HEMOLYSIS < 15 (0-50); Phosphorous 4.2 mg/dL (2.3-3.7); Potassium 3.8 mmol/L (3.4-5.1); Sodium 138 mmol/L (137-145); Total Protein 7.3 g/dL (6.3-8.2)
[2021-09-03] MEDS: polyethylene glycoL 3350 17 GM POWD.PACK PO (08:27)
[2021-09-03] MEDS: ENOXAPARIN 40 MG/0.4 ML SYRINGE SUBCUT (08:27)
[2021-09-03] MEDS: THIAMINE 100 MG TABLET PO (08:28)
[2021-09-03] MEDS: TAMSULOSIN 0.4 MG CAPSULE PO (08:28)
[2021-09-03] MEDS: MULTIVITAMIN 1 TABLET 1 TAB PO (08:28)
[2021-09-03] MEDS: GABAPENTIN 300 MG CAPSULE PO (08:28)
[2021-09-03] MEDS: SENNOSIDES 8.6 MG TABLET 17.2 MG PO ×2 (08:28→21:37)
[2021-09-03] MEDS: LOSARTAN 25 MG TABLET PO (08:28)
[2021-09-03] MEDS: FOLIC ACID 1 MG TABLET PO (08:28)
[2021-09-03] MEDS: chlordiazePOXIDE 10 MG CAPSULE PO (08:28)
[2021-09-03] MEDS: SODIUM CHLORIDE 0.9% FLUSH 10 ML IV ×2 (08:29→21:38)
[2021-09-03] MEDS: METFORMIN XR 500 MG TABLET 1000 MG PO ×2 (08:32→16:39)
[2021-09-03] MEDS: OXYCODONE IR 5 MG TABLET PO ×2 (11:04→21:37)
--- NOTE | 2021-09-03 11:50 | PM.PN.1 ---
Subjective Subjective Date Patient Seen: 09/03/21 Interval history: 61-year-old male with type 2 diabetes, hypertension and hyperlipidemia, history of asthma admitted due to right pneumothorax. Patient has chest tube to low suction. He denies chest pain or shortness of breath. He did require Amaya placed 09/02 for acute urinary retention and started on tamsulosin. Exam Vital Signs (past 8 hours): - 09/03/21 05:00 09/03/21 08:00 09/03/21 08:45 Temperature 98.2 F 98.1 F Pulse Rate 64 77 Respiratory Rate 18 18 Blood Pressure 116/65 116/64 Pulse Oximetry 100 95 94 Oxygen Delivery Method Nasal Cannula Oxygen Flow Rate 2 Narrative Exam Narrative: General: Alert and pleasant in no distress Lungs: Clear Heart: Regular rhythm Extremities: No edema Objective Labs Result Diagrams: 09/03/21 05:25 09/03/21 05:25 Labs: Laboratory Results - last 24 hr 09/03/21 09/03/21 05:25 05:25 WBC 7.2 RBC 3.87 L Hgb 12.9 L Hct 37.7 L MCV 97.6 MCH 33.3 MCHC 34.1 RDW 13.9 Plt Count 150 Neut % (Auto) 63.1 Lymph % (Auto) 20.8 L [place] % (Auto) 13.3 Eos % (Auto) 2.3 Baso % (Auto) 0.5 Neut # (Auto) 4500 Lymph # (Auto) 1500 [place] # (Auto) 1000 H Eos # (Auto) 200 Baso # (Auto) 0 Sodium 138 Potassium 3.8 Chloride 101 Carbon Dioxide 30 BUN 16 Creatinine 0.68 Estimated GFR > 60.0 BUN/Creatinine Ratio 23.5 H Glucose 134 H Calcium 9.2 Phosphorus 4.2 H Total Bilirubin 0.7 AST 72 H ALT 59 H Alkaline Phosphatase 60 Total Protein 7.3 Albumin 3.9 Globulin 3.4 Albumin/Globulin Ratio 1.1 PFSH Social History household members: none Smoking Status: Former smoker alcohol intake: current Assessment & Plan Assessment & Plan narrative: 1. Right lung spontaneous pneumothorax -chest tube reinserted on 09/01 -chest x-ray this a.m. -await recommendations from surgery 2. Acute urinary retention -Amaya placed 09/02 -tamsulosin started -attempt Amaya removal tomorrow 3. History of ETOH abuse -no evidence of ETOH withdrawal -discontinue Librium and gabapentin 4. Hypertension, stable -continue med 5. Diabetes, well controlled -continue metformin DVT prophylaxis: On Lovenox Time Spent With Patient Critical Care time: I spent a total of [] minutes of critical care time on this patient's care today; this time is exclusive of procedural time. Quality VTE Deep Vein Thrombosis/Pulmonary Embolism Present on Admission: No
--- NOTE | 2021-09-03 11:54 | DI.RAD.S_ITS ---
PROCEDURE: XR CHEST 1V INDICATIONS: f/u ptx TECHNIQUE: One view of the chest was acquired. COMPARISON: [facility], , XR CHEST 1V, 09/02/2021, 7:46. FINDINGS: Surgical changes and devices: A right chest tube is seen, however has been pulled out relative to the prior x-ray on 09/02/2021. The side port is now at the ribs. Lungs and pleura: Diffuse bilateral airspace opacities are seen. No pneumothorax or pleural effusion. Mediastinum: Mediastinal contours appear normal. Heart size is normal. Bones and chest wall: No suspicious bony lesions. Overlying soft tissues appear unremarkable. IMPRESSION: 1. Chest tube has retracted and the side port is now at the level of the ribs. 2. No residual pneumothorax. Dictated by: Bladimir Gonzalez M.D. on 09/03/2021 at 11:58 Approved by: Bladimir Gonzalez M.D. on 09/03/2021 at 12:00
--- NOTE | 2021-09-03 12:50 | CM.DPC ---
DCP Cont: Per MD and Surgeon, attempted chest tube removal and plan of d/c on 09/01/21 but then prior to d/c pt became SOB and chest tube had to be reinserted. Chest tube remains in place and invasive cardiovascular technologist just completed bedside xray to determine medical needs and if chest tube can be switched to water seal. Pt was having urinary retention and currently has clemons cath in place and currently on 2LO2 NC. SW met bedside with pt and explained role and he confirms he is feeling better and still has multiple friends to assist and check on him at d/c and a friend to provide transport home at d/c and he currently does not have concerns with d/c to home when medically stable. Pt is ambulating independently and steady and tolerating diet. Plan: SW to follow for xray results and Surgeon recommendations towards determining when chest tube can be removed and timeline for d/c to home and any further identified discharge planning needs. KHOI Gomez
--- NOTE | 2021-09-03 14:23 | PC.NURSE ---
Day shift: Pt given print out from [employer] on pneumothorax (the basics) at this time.
--- NOTE | 2021-09-03 15:36 | P.PN_ITS ---
Subjective Subjective Date Patient Seen: 09/03/21 Interval history: No complaints Chest x-ray this morning shows no pneumothorax but the sentinel hole appears to be close to the chest wall Exam Vital Signs (past 8 hours): - 09/03/21 08:00 09/03/21 08:45 09/03/21 13:17 Temperature 98.1 F 98.8 F Pulse Rate 77 79 Respiratory Rate 18 16 Blood Pressure 116/64 123/68 Pulse Oximetry 95 94 96 Oxygen Delivery Method Nasal Cannula Oxygen Flow Rate 2 Narrative Exam Narrative: No acute distress Normal respiratory effort Chest tube shows no evidence of an air leak Objective Labs Result Diagrams: 09/03/21 05:25 09/03/21 05:25 Labs: Laboratory Results - last 24 hr 09/03/21 09/03/21 05:25 05:25 WBC 7.2 RBC 3.87 L Hgb 12.9 L Hct 37.7 L MCV 97.6 MCH 33.3 MCHC 34.1 RDW 13.9 Plt Count 150 Neut % (Auto) 63.1 Lymph % (Auto) 20.8 L [place] % (Auto) 13.3 Eos % (Auto) 2.3 Baso % (Auto) 0.5 Neut # (Auto) 4500 Lymph # (Auto) 1500 [place] # (Auto) 1000 H Eos # (Auto) 200 Baso # (Auto) 0 Sodium 138 Potassium 3.8 Chloride 101 Carbon Dioxide 30 BUN 16 Creatinine 0.68 Estimated GFR > 60.0 BUN/Creatinine Ratio 23.5 H Glucose 134 H Calcium 9.2 Phosphorus 4.2 H Total Bilirubin 0.7 AST 72 H ALT 59 H Alkaline Phosphatase 60 Total Protein 7.3 Albumin 3.9 Globulin 3.4 Albumin/Globulin Ratio 1.1 PFSH Social History household members: none Smoking Status: Former smoker alcohol intake: current Assessment & Plan Assessment and plan (1) Pneumothorax on right: Status: Acute Plan Chest tube to water seal Chest x-ray in the morning Time Spent With Patient Critical Care time: I spent a total of [] minutes of critical care time on this patient's care today; this time is exclusive of procedural time. Quality VTE Deep Vein Thrombosis/Pulmonary Embolism Present on Admission: No
[2021-09-03] MEDS: ACETAMINOPHEN 325 MG TABLET 650 MG PO (16:26)
[2021-09-03] MEDS: ATORVASTATIN 20 MG TABLET PO (21:36)
[2021-09-03] MEDS: MELATONIN 3 MG TABLET 9 MG PO (23:54)
[2021-09-04] VITALS (10 sets, daily range): BP systolic 121–143; BP diastolic 61–87; PULSE 76–89; RESP 16–20; TEMP 36.4–37.3; O2SAT 90–99
[2021-09-04] MEDS: OXYCODONE IR 5 MG TABLET PO ×4 (03:45→21:54)
--- NOTE | 2021-09-04 03:54 | DI.RAD.S_ITS ---
PROCEDURE: XR CHEST 1V INDICATIONS: dimished breath sounds/rt pnumo/chest tube TECHNIQUE: One view of the chest was acquired. COMPARISON: [facility], CR, XR CHEST 1V, 09/03/2021, 12:34. FINDINGS: Surgical changes and devices: None. Lungs and pleura: Atelectasis in the right lung. The left lung is clear. A new 50-60% pneumothorax on the right. No mediastinal shift or tracheal deviation. Mediastinum: Mediastinal contours appear normal. Heart size is normal. Bones and chest wall: No suspicious bony lesions. Overlying soft tissues appear unremarkable. IMPRESSION: 1. Partial collapse of the right lung with 50-60% pneumothorax on the right. No mediastinal shift. 2. The left lung is well expanded and clear. Findings were conveyed to the emergency department at the time of preliminary interpretation. Comment: Final report is concordant with preliminary interpretation by [facility] Dictated by: Bladimir Gonzalez M.D. on 09/04/2021 at 6:58 Approved by: Bladimir Gonzalez M.D. on 09/04/2021 at 7:00
--- NOTE | 2021-09-04 05:14 | DI.RAD.S_ITS ---
PROCEDURE: XR CHEST 1V INDICATIONS: RT PNEUMOTHORAX TECHNIQUE: One view of the chest was acquired. COMPARISON: [facility], , XR CHEST 1V, 09/04/2021, 3:56. FINDINGS: Surgical changes and devices: A chest tube is seen, but does not appear fully within the right chest. Lungs and pleura: There is atelectasis of the right lung. The left lung is clear. Right-sided 50% pneumothorax is seen. Mediastinum: Mediastinal contours appear normal. Heart size is normal. Bones and chest wall: No suspicious bony lesions. Overlying soft tissues appear unremarkable. IMPRESSION: 1. Right pneumothorax with 50-60% collapse. No mediastinal shift. 2. The left lung is well expanded. 3. Right-sided chest tube is seen but is not fully within the right chest. Dictated by: Bladimir Gonzalez M.D. on 09/04/2021 at 7:02 Approved by: Bladimir Gonzalez M.D. on 09/04/2021 at 7:03
[2021-09-04] MEDS: LORazepam 2 MG/ML INJ IV (05:37)
[2021-09-04] MEDS: HYDROMORPHONE 0.5 MG INJ 1 MG IV (05:37)
[2021-09-04] MEDS: LIDOCAINE 2% INJ MDV 20 ML (05:38)
--- NOTE | 2021-09-04 05:51 | DI.RAD.S_ITS ---
PROCEDURE: XR CHEST 1V INDICATIONS: check new chest tube placement TECHNIQUE: One view of the chest was acquired. COMPARISON: [facility], , XR CHEST 1V, 09/04/2021, 5:16. FINDINGS: Surgical changes and devices: Interval repositioning of a right-sided chest tube. Lungs and pleura: Large right pneumothorax has improved. The left lung is clear. Mediastinum: Mediastinal contours appear normal. Heart size is normal. Bones and chest wall: No suspicious bony lesions. Overlying soft tissues appear unremarkable. IMPRESSION: There is been repositioning of the right large bore chest tube. Pneumothorax is unchanged. Comment: Final report is concordant with preliminary interpretation by [facility] Dictated by: Bladimir Gonzalez M.D. on 09/04/2021 at 7:00 Approved by: Bladimir Gonzalez M.D. on 09/04/2021 at 7:01
--- NOTE | 2021-09-04 06:26 | DI.CT.S_ITS ---
PROCEDURE: CT CHEST WO CON INDICATIONS: pneumothorax TECHNIQUE: Noncontrast 5 mm thick sections acquired from the pulmonary apices to the posterior costophrenic angles. 1 mm lung window, 5 mm thick coronal and sagittal and 7 mm axial MIP reformats were then acquired. For radiation dose reduction, the following was used: automated exposure control, adjustment of mA and/or kV according to patient size. COMPARISON: None. FINDINGS: A chest tube enters the right anterolateral chest but does not enter the right chest cavity, terminating posterior to the right posterior 5th rib on series 7, image 61 and series 2, image 24. There is a large right pneumothorax. Consolidation and atelectasis are seen in much of the right lung. The left lung and pleural space are predominantly clear. Normal heart size. Four-vessel coronary atherosclerosis. Normal caliber thoracic aorta and main pulmonary trunk. No threshold enlarged thoracic lymph node identified in the absence of IV contrast. No acute finding in the partially included upper abdomen. IMPRESSION: Large right pneumothorax. The currently right-sided chest tube is misplaced and does not enter the chest cavity. Dictated by: Demetri Heredia M.D. on 09/04/2021 at 9:19 Approved by: Demetri Heredia M.D. on 09/04/2021 at 9:22
--- NOTE | 2021-09-04 06:28 | PM.OP.1 ---
Operative Date/Time/Diagnoses Date of procedure: 09/04/21 Time of procedure: 06:28 Pre-op diagnosis: Right pneumothorax Post-op diagnosis: same Procedure & Clinicians Procedure: Right tube thoracostomy Same procedure as scheduled: Yes Indications: Right pneumothorax Surgeon: Raul Mcmillan Anesthesia Type: Local Operative Notes Estimated Blood Loss (mL): 5 Procedure in detail: The right chest was prepped and draped in the usual fashion. The old chest tube was removed. A 3 cm incision was created over roughly the 7th rib slightly lateral and posterior to the nipple. Additional local was injected along the rib itself. A 20 [place] trocar chest tube was inserted into the chest and the trocar was partially withdrawn. The tube was directed laterally and towards the apex of the lung. The trocar was removed completely. Chest tube was sutured to the skin and connected to the collection chamber. The chest tube was secured to the skin with a an Ethibond suture and a 2-0 silk U-stitch was placed in left untied for future closure. Dressings were applied. A chest x-ray was performed which showed the tube in the chest. There was residual apical pneumothorax.
[2021-09-04] MEDS: INSULIN LISPRO 100 UNIT/ML 3ML VIAL SUBCUT ×3 (09:28→16:31)
[2021-09-04] MEDS: SENNOSIDES 8.6 MG TABLET 17.2 MG PO ×2 (09:38→20:08)
[2021-09-04] MEDS: LOSARTAN 25 MG TABLET PO (09:38)
[2021-09-04] MEDS: TAMSULOSIN 0.4 MG CAPSULE PO (09:38)
[2021-09-04] MEDS: MULTIVITAMIN 1 TABLET 1 TAB PO (09:38)
[2021-09-04] MEDS: polyethylene glycoL 3350 17 GM POWD.PACK PO (09:38)
[2021-09-04] MEDS: FOLIC ACID 1 MG TABLET PO (09:38)
[2021-09-04] MEDS: ENOXAPARIN 40 MG/0.4 ML SYRINGE SUBCUT (09:39)
[2021-09-04] MEDS: METFORMIN XR 500 MG TABLET 1000 MG PO ×2 (09:42→16:30)
[2021-09-04] MEDS: SODIUM CHLORIDE 0.9% FLUSH 10 ML IV ×3 (09:44→20:15)
[2021-09-04] MEDS: HYDROMORPHONE 1 MG INJ IV (10:36)
--- NOTE | 2021-09-04 10:59 | DI.RAD.S_ITS ---
PROCEDURE: XR CHEST 1V INDICATIONS: Chest tube placement TECHNIQUE: One view of the chest was acquired. COMPARISON: [facility], CT, CT CHEST WO CON, 09/04/2021, 8:19. [facility], CR, XR CHEST 1V, 09/04/2021, 5:53. FINDINGS: Right-sided pneumothorax has markedly decreased, now small at the apex. Right large bore chest tube projects over the right lower chest with distal tip projecting over the medial right lung. Airspace opacities in the right lung base are noted. Left lung and pleural space are clear. IMPRESSION: Markedly decreased size of right pneumothorax seen previously, now small at the apex. Dictated by: Demetri Heredia M.D. on 09/04/2021 at 11:32 Approved by: Demetri Heredia M.D. on 09/04/2021 at 11:38
[2021-09-04] MEDS: BACITRACIN 28 GM OINT 1 APPLIC TOP ×2 (11:18→20:06)
--- NOTE | 2021-09-04 11:25 | PM.PN.1 ---
Subjective Subjective Date Patient Seen: 09/04/21 Interval history: 61-year-old male with type 2 diabetes, hypertension and hyperlipidemia, history of asthma admitted due to right pneumothorax. Patient had recurrent large pneumothorax noted on CT this morning. Dr. Urban removed old chest tube and inserted new chest tube. He also closed the initial chest tube incision from the ED which he thinks was causing a sucking pneumothorax. Exam Vital Signs (past 8 hours): - 09/04/21 04:56 09/04/21 07:40 09/04/21 08:00 Temperature 97.6 F 98.3 F Pulse Rate 87 80 87 Respiratory Rate 20 20 16 Blood Pressure 127/84 134/87 Pulse Oximetry 94 93 90 L Oxygen Delivery Method Nasal Cannula Oxygen Flow Rate 2 Narrative Exam Narrative: Exam this a.m. prior to new chest tube General: Alert NAD Lungs: Diminished on the right Cardiac: Regular rhythm Extremities: No edema Objective Labs Result Diagrams: 09/03/21 05:25 09/03/21 05:25 [facility] Social History household members: none Smoking Status: Former smoker alcohol intake: current Assessment & Plan Assessment & Plan narrative: 1.? Right lung spontaneous pneumothorax -chest tube has now been reinserted several times likely due to open area above the 1st chest tube insertion -follow-up chest x-ray post chest tube drain surgeon -O2 PRN -hydromorphone and lorazepam as needed 2. Acute urinary retention -Amaya placed 09/02 -tamsulosin started -attempt Amaya removal prior to discharge 3. History of ETOH abuse -no evidence of ETOH withdrawal -discontinued Librium and gabapentin 4. Hypertension, stable -continue med 5.? Diabetes, well controlled -continue metformin DVT prophylaxis:? On Lovenox Time Spent With Patient Critical Care time: I spent a total of [] minutes of critical care time on this patient's care today; this time is exclusive of procedural time. Quality VTE Deep Vein Thrombosis/Pulmonary Embolism Present on Admission: No
--- NOTE | 2021-09-04 11:28 | P.PN_ITS ---
Subjective Subjective Date Patient Seen: 09/04/21 Time Patient Seen: 11:29 Interval history: Previous chest tube dislodged overnight. A new chest tube was placed however it was not within the thoracic cavity. Feels short of breath this morning. Exam Vital Signs (past 8 hours): - 09/04/21 04:56 09/04/21 07:40 09/04/21 08:00 Temperature 97.6 F 98.3 F Pulse Rate 87 80 87 Respiratory Rate 20 20 16 Blood Pressure 127/84 134/87 Pulse Oximetry 94 93 90 L Oxygen Delivery Method Nasal Cannula Oxygen Flow Rate 2 Narrative Exam Narrative: General adult male alert oriented mild distress Chest inferior chest tube was replaced into the thoracic cavity and there was the instant release of air and tidal in within the tube system. The superior chest wound was cleaned with chlorhexidine the tissue repaired and then the skin was closed with interrupted nylon suture. Objective Labs Result Diagrams: 09/03/21 05:25 09/03/21 05:25 [facility] Social History household members: none Smoking Status: Former smoker alcohol intake: current Assessment & Plan Assessment and plan (1) Pneumothorax on right: Status: Acute Assessment & Plan narrative: 61-year-old man with a recurring spontaneous right pneumothorax. Currently there is a chest tube that is adequately working. I suspect that a large component of his recurring pneumothorax was a sucking chest wound through the previous superior chest incision. The skin has been closed here to prevent that from happening again. Keep chest tube to low wall suction today chest x- ray tomorrow if that looks okay then switch to water seal. Bacitracin to superior chest wound and 2 days of Ancef written for mild cellulitis Time Spent With Patient Critical Care time: I spent a total of [] minutes of critical care time on this patient's care today; this time is exclusive of procedural time. Quality VTE Deep Vein Thrombosis/Pulmonary Embolism Present on Admission: No
[2021-09-04] MEDS: CEFAZOLIN 2 GM/20 ML SYRINGE IV ×2 (12:24→18:30)
[2021-09-04] MEDS: ATORVASTATIN 20 MG TABLET PO (20:08)
[2021-09-04] MEDS: MELATONIN 3 MG TABLET 9 MG PO (20:08)
[2021-09-04] MEDS: ACETAMINOPHEN 325 MG TABLET 650 MG PO (21:54)
[2021-09-05] VITALS (9 sets, daily range): BP systolic 120–140; BP diastolic 70–82; PULSE 62–81; RESP 16–20; TEMP 36.8–37.3; O2SAT 92–96
[2021-09-05] MEDS: CEFAZOLIN 2 GM/20 ML SYRINGE IV ×3 (02:12→18:32)
[2021-09-05] MEDS: OXYCODONE IR 5 MG TABLET 10 MG PO (02:13)
[2021-09-05] MEDS: polyethylene glycoL 3350 17 GM POWD.PACK PO (08:39)
[2021-09-05] MEDS: FOLIC ACID 1 MG TABLET PO (08:40)
[2021-09-05] MEDS: SENNOSIDES 8.6 MG TABLET 17.2 MG PO ×2 (08:40→20:57)
[2021-09-05] MEDS: TAMSULOSIN 0.4 MG CAPSULE PO (08:40)
[2021-09-05] MEDS: MULTIVITAMIN 1 TABLET 1 TAB PO (08:40)
[2021-09-05] MEDS: LOSARTAN 25 MG TABLET PO (08:40)
[2021-09-05] MEDS: ENOXAPARIN 40 MG/0.4 ML SYRINGE SUBCUT (08:41)
[2021-09-05] MEDS: BACITRACIN 28 GM OINT 1 APPLIC TOP ×2 (08:41→21:07)
[2021-09-05] MEDS: SODIUM CHLORIDE 0.9% FLUSH 10 ML IV ×4 (08:42→21:19)
[2021-09-05] MEDS: METFORMIN XR 500 MG TABLET 1000 MG PO ×2 (08:44→17:18)
--- NOTE | 2021-09-05 09:58 | DI.RAD.S_ITS ---
PROCEDURE: XR CHEST 1V INDICATIONS: Chest tube to water seal TECHNIQUE: One view of the chest was acquired. COMPARISON: [facility], , XR CHEST 1V, 09/04/2021, 11:20. FINDINGS: Surgical changes and devices: A right-sided chest tube is seen with the side port within the right hemithorax. Lungs and pleura: There is a persistent right pneumothorax, unchanged compared to the prior study yesterday. Mediastinum: Mediastinal contours appear normal. Heart size is normal. Bones and chest wall: No suspicious bony lesions. Overlying soft tissues appear unremarkable. IMPRESSION: The right-sided chest tube in good position with persistent right pneumothorax. Dictated by: Bladimir Gonzalez M.D. on 09/05/2021 at 9:32 Approved by: Bladimir Gonzalez M.D. on 09/05/2021 at 9:35
--- NOTE | 2021-09-05 09:59 | PM.PN.1 ---
Subjective Subjective Date Patient Seen: 09/05/21 Time Patient Seen: 10:01 Interval history: no overnight issues Exam Vital Signs (past 8 hours): - 09/05/21 04:00 09/05/21 07:38 09/05/21 07:56 Temperature 98.5 F 98.7 F Pulse Rate 62 71 Respiratory Rate 18 16 Blood Pressure 128/78 120/71 Pulse Oximetry 95 95 95 09/05/21 08:40 Temperature Pulse Rate 75 Respiratory Rate Blood Pressure 120/71 Pulse Oximetry Oxygen Delivery Method Nasal Cannula Oxygen Flow Rate 0 Narrative Exam Narrative: Chest Tube-no air leak Objective Labs Result Diagrams: 09/03/21 05:25 09/03/21 05:25 [facility] Social History household members: none Smoking Status: Former smoker alcohol intake: current Assessment & Plan Assessment & Plan narrative: 61M with recurrent R pneumothorax -Chest tube to water seal today -Follow up CXR ordered -Anticipate chest tube removal tomorrow Time Spent With Patient Critical Care time: I spent a total of [] minutes of critical care time on this patient's care today; this time is exclusive of procedural time. Quality VTE Deep Vein Thrombosis/Pulmonary Embolism Present on Admission: No
--- NOTE | 2021-09-05 12:57 | PM.PN.1 ---
Subjective Subjective Date Patient Seen: 09/05/21 Time Patient Seen: 10:00 Interval history: Today he denies shortness of breath. He has some pain at chest tube insertion site. He still has chest tube, was to suction. Surgery came by earlier today and placed chest tube to water seal. Xray pending. Exam Vital Signs (past 8 hours): - 09/05/21 07:38 09/05/21 07:56 09/05/21 08:40 Temperature 98.7 F Pulse Rate 71 75 Respiratory Rate 16 Blood Pressure 120/71 120/71 Pulse Oximetry 95 95 09/05/21 11:00 Temperature 98.5 F Pulse Rate 77 Respiratory Rate 17 Blood Pressure 121/74 Pulse Oximetry 96 Oxygen Delivery Method Nasal Cannula Oxygen Flow Rate 0 Narrative Exam Narrative: General: no acute distress Lungs: clear bilaterally Cardiac: Regular rhythm Extremities: No edema Objective Labs Result Diagrams: 09/03/21 05:25 09/03/21 05:25 [facility] Social History household members: none Smoking Status: Former smoker alcohol intake: current Assessment & Plan Assessment & Plan narrative: 1.? Right lung spontaneous pneumothorax -chest tube has now been reinserted several times likely due to open area above the 1st chest tube insertion -follow-up chest x-ray post chest tube drain surgeon -O2 PRN -hydromorphone and lorazepam as needed 2. Acute urinary retention -Amaya placed 09/02 -tamsulosin started -attempt Amaya removal prior to discharge 3. History of ETOH abuse -no evidence of ETOH withdrawal -discontinued Librium and gabapentin 4. Hypertension, stable -continue med 5.? Diabetes, well controlled -continue metformin Time Spent With Patient Critical Care time: I spent a total of [] minutes of critical care time on this patient's care today; this time is exclusive of procedural time. Quality VTE Deep Vein Thrombosis/Pulmonary Embolism Present on Admission: No
--- NOTE | 2021-09-05 13:21 | PC.NURSE ---
Day shift: Per Dr Mitchell ok to leave current IV (Rt AC) in place.
[2021-09-05] MEDS: OXYCODONE IR 5 MG TABLET PO ×2 (14:18→20:56)
[2021-09-05] MEDS: MELATONIN 3 MG TABLET 9 MG PO (20:57)
[2021-09-05] MEDS: ATORVASTATIN 20 MG TABLET PO (20:57)
--- NOTE | 2021-09-05 23:45 | PC.NURSE ---
SHIFT: Report received, care assumed 1914. Pt. A&Ox4. Right thoracic chest tube to water seal. Lung sounds auscultated, no crepitus auscultated or palpated. Moderate pain at chest tube site. Superior to current drain, in axillary area, old insertion site noted; HARJINDER, CDI. Pt encouraged to get OOB and move around with assistance. Verbalizes understanding, declines at this time. Repositions self in bed.
[2021-09-06] VITALS (7 sets, daily range): BP systolic 109–134; BP diastolic 69–74; PULSE 64–88; RESP 15–18; TEMP 36.6–37.4; O2SAT 90–93
[2021-09-06] MEDS: OXYCODONE IR 5 MG TABLET PO ×2 (01:49→09:31)
[2021-09-06] MEDS: CEFAZOLIN 2 GM/20 ML SYRINGE IV (04:19)
--- NOTE | 2021-09-06 08:20 | DI.RAD.S_ITS ---
PROCEDURE: XR CHEST 1V INDICATIONS: eval for pneumothorax TECHNIQUE: One view of the chest was acquired. COMPARISON: [facility], CT, CT CHEST WO CON, 09/04/2021, 8:19. [facility], CR, XR CHEST 1V, 09/05/2021, 10:06. [facility], CR, XR CHEST 1V, 09/04/2021, 11:20. FINDINGS: Surgical changes and devices: Right-sided chest tube with the catheter in the mid thorax, (previously projected more inferiorly). Lungs and pleura: Emphysematous change. Mild hazy opacity at the right lung base which has the appearance of atelectasis. Small right pleural effusion. The previously seen right-sided pneumothorax is no longer appreciated. Mediastinum: Mediastinal contours appear unchanged. No midline shift. Heart size is normal. Bones and chest wall: No suspicious bony lesions. Small volume of right subcutaneous emphysema. IMPRESSION: Right-sided pneumothorax is no longer appreciated. Right-sided chest tube with the catheter tip projecting at the mid thorax. Suspect small right pleural effusion and right basilar atelectasis. Dictated by: Juliocesar Bauman M.D. on 09/06/2021 at 15:23 Approved by: Juliocesar Bauman M.D. on 09/06/2021 at 15:27
[2021-09-06] MEDS: polyethylene glycoL 3350 17 GM POWD.PACK PO (09:31)
[2021-09-06] MEDS: FOLIC ACID 1 MG TABLET PO (09:31)
[2021-09-06] MEDS: SENNOSIDES 8.6 MG TABLET 17.2 MG PO ×2 (09:31→21:12)
[2021-09-06] MEDS: ENOXAPARIN 40 MG/0.4 ML SYRINGE SUBCUT (09:31)
[2021-09-06] MEDS: TAMSULOSIN 0.4 MG CAPSULE PO (09:31)
[2021-09-06] MEDS: MULTIVITAMIN 1 TABLET 1 TAB PO (09:31)
[2021-09-06] MEDS: LOSARTAN 25 MG TABLET PO (09:32)
[2021-09-06] MEDS: SODIUM CHLORIDE 0.9% FLUSH 10 ML IV ×2 (09:33→21:20)
[2021-09-06] MEDS: METFORMIN XR 500 MG TABLET 1000 MG PO ×2 (09:35→18:42)
[2021-09-06] MEDS: BACITRACIN 28 GM OINT 1 APPLIC TOP ×2 (09:37→21:21)
--- NOTE | 2021-09-06 11:37 | PM.PN.1 ---
Subjective Subjective Date Patient Seen: 09/06/21 Time Patient Seen: 11:38 Interval history: sitting in chair. Pain at CT site with cough. Has a productive cough. Exam Vital Signs (past 8 hours): - 09/06/21 07:12 09/06/21 07:30 09/06/21 11:30 Temperature 98.1 F 99.3 F Pulse Rate 64 84 Respiratory Rate 15 16 Blood Pressure 134/71 113/74 Pulse Oximetry 93 93 90 L Oxygen Delivery Method Room Air Oxygen Flow Rate 0 Narrative Exam Narrative: CXR show full expansion of right lung. Small air leak w cough. Productive cough unsolicted Objective Labs Result Diagrams: 09/03/21 05:25 09/03/21 05:25 [facility] Social History household members: none Smoking Status: Former smoker alcohol intake: current Assessment & Plan Assessment & Plan narrative: Right Chest tube for treatment of recurrent spontaneous PTX. Air leak demo'd Plan: leave chest tube another day. Time Spent With Patient Time with patient: less than 30 minutes Critical Care time: I spent a total of [] minutes of critical care time on this patient's care today; this time is exclusive of procedural time. Quality VTE Deep Vein Thrombosis/Pulmonary Embolism Present on Admission: No
--- NOTE | 2021-09-06 12:28 | P.PN_ITS ---
Subjective Subjective Date Patient Seen: 09/06/21 Time Patient Seen: 09:00 Interval history: Today he has pain at insertion site. He has no shortness of breath. Chest tube with small air leak with cough. Exam Vital Signs (past 8 hours): - 09/06/21 07:12 09/06/21 07:30 09/06/21 11:30 Temperature 98.1 F 99.3 F Pulse Rate 64 84 Respiratory Rate 15 16 Blood Pressure 134/71 113/74 Pulse Oximetry 93 93 90 L Oxygen Delivery Method Room Air Oxygen Flow Rate 0 Narrative Exam Narrative: General: no acute distress Lungs: clear bilaterally Cardiac: Regular rhythm Extremities: No edema Objective Labs Result Diagrams: 09/03/21 05:25 09/03/21 05:25 [facility] Social History household members: none Smoking Status: Former smoker alcohol intake: current Assessment & Plan Assessment & Plan narrative: 1.? Right lung spontaneous pneumothorax -chest tube has now been reinserted several times likely due to open area above the 1st chest tube insertion -follow-up chest x-ray post chest tube drain surgeon -O2 PRN -hydromorphone and lorazepam as needed 2. Acute urinary retention -Amaya placed 09/02 -tamsulosin started -attempt Amaya removal prior to discharge 3. History of ETOH abuse -no evidence of ETOH withdrawal -discontinued Librium and gabapentin 4. Hypertension, stable -continue med 5.? Diabetes, well controlled -continue metformin Time Spent With Patient Critical Care time: I spent a total of [] minutes of critical care time on this patient's care today; this time is exclusive of procedural time. Quality VTE Deep Vein Thrombosis/Pulmonary Embolism Present on Admission: No
--- NOTE | 2021-09-06 12:46 | PC.NURSE ---
PT ENCOURAGED TO GET U P FROM BED AND AMBULATE IN HALLWAY THEN RETURNED TO CHAIR FOR LUNCH TIME MEAL- PAIN CONTROLLED WITH PO OXYCODONE 5MG - BACITRATION APPLIED TO PREVIOUS CHEST TUBE INSERTION SITE
[2021-09-06] MEDS: OXYCODONE IR 5 MG TABLET 10 MG PO ×2 (13:24→21:12)
[2021-09-06] MEDS: ATORVASTATIN 20 MG TABLET PO (21:13)
[2021-09-06] MEDS: MELATONIN 3 MG TABLET 9 MG PO (21:13)
[2021-09-07] VITALS (8 sets, daily range): BP systolic 105–132; BP diastolic 54–76; PULSE 69–99; RESP 16–20; TEMP 36.6–37.2; O2SAT 92–96
--- NOTE | 2021-09-07 01:16 | PC.NURSE ---
Addendum entered by Ny Marshall R.N. 09/07/21 06:27: Amaya was discontinued last night ~1930. Pt still has not voided as of 0600. Bladder scan demonstrates 376ml; will allow more time. Original Note: SHIFT: Report received, care assumed 1914. Pt up in chair, A&Ox4, VSS. Able to transfer/ambulate with one-person assist to manage his chest tube. CT to water seal, dressing CDI. No crepitus ausculatated or palpated. Breath sounds heard throughout. Pain at the site with movement. Using IS.
[2021-09-07] MEDS: OXYCODONE IR 5 MG TABLET 10 MG PO ×4 (05:26→23:48)
--- NOTE | 2021-09-07 07:00 | DI.RAD.S_ITS ---
PROCEDURE: XR CHEST 1V INDICATIONS: pneumothorax TECHNIQUE: One view of the chest was acquired. COMPARISON: [facility], CR, XR CHEST 1V, 09/06/2021, 8:21. FINDINGS: Surgical changes and devices: Stable positioning of right-sided thoracostomy tube. Lungs and pleura: Persistent streaky bibasilar opacities likely representing atelectasis. Minimal blunting of the costophrenic angles suggestive of small bilateral pleural effusions. Possible tiny right upper lung/apically pneumothorax. Mediastinum: Mediastinal contours appear stable. Heart size is normal. Bones and chest wall: No suspicious bony lesions. Overlying soft tissues appear unremarkable. IMPRESSION: Stable position of right-sided thoracostomy tube with possible tiny right upper lung/apically pneumothorax. Streaky bibasilar opacities with blunting of the costophrenic angles compatible with bibasilar atelectasis with small pleural effusions. Dictated by: Dale Bustillos M.D. on 09/07/2021 at 7:54 Approved by: Dale Bustillos M.D. on 09/07/2021 at 7:56
[2021-09-07] MEDS: TAMSULOSIN 0.4 MG CAPSULE PO (08:31)
[2021-09-07] MEDS: polyethylene glycoL 3350 17 GM POWD.PACK PO (08:31)
[2021-09-07] MEDS: SENNOSIDES 8.6 MG TABLET 17.2 MG PO ×2 (08:31→20:10)
[2021-09-07] MEDS: LOSARTAN 25 MG TABLET PO (08:32)
[2021-09-07] MEDS: MULTIVITAMIN 1 TABLET 1 TAB PO (08:32)
[2021-09-07] MEDS: FOLIC ACID 1 MG TABLET PO (08:32)
[2021-09-07] MEDS: ENOXAPARIN 40 MG/0.4 ML SYRINGE SUBCUT (08:32)
[2021-09-07] MEDS: BACITRACIN 28 GM OINT 1 APPLIC TOP ×2 (08:34→21:10)
[2021-09-07] MEDS: METFORMIN XR 500 MG TABLET 1000 MG PO ×2 (08:35→17:10)
[2021-09-07] MEDS: HYDROMORPHONE 1 MG INJ IV (13:41)
--- NOTE | 2021-09-07 15:40 | PM.PN.1 ---
Subjective Subjective Date Patient Seen: 09/07/21 Time Patient Seen: 15:40 Interval history: Frustrated and anxious Exam Vital Signs (past 8 hours): - 09/07/21 08:00 09/07/21 12:00 Temperature 98.9 F 98.6 F Pulse Rate 69 74 Respiratory Rate 18 16 Blood Pressure 127/76 105/54 L Pulse Oximetry 93 93 Oxygen Delivery Method Room Air Oxygen Flow Rate 0 Narrative Exam Narrative: good size air leak on chest tube Const General: cooperative and comfortable HENMT Head: normocephalic and atraumatic Face and sinus: normal facial exam Eyes General: appearance normal, both eyes and all related structures Neck Neck: trachea midline Chest Chest: normal inspection of the chest Resp Effort & Inspection: normal respiratory effort and able to speak in complete sentences Auscultation: clear to auscultation bilaterally Cardio Rate: regular rate Rhythm: regular rhythm GI Inspection: normal to inspection Skin General: no rashes or lesions noted Neuro General: patient alert and patient oriented x3 Cognition: normal cognition Extrem General: normal to inspection and full ROM Psych Appearance: grossly normal Judgment: judgment good Objective Labs Result Diagrams: 09/03/21 05:25 09/03/21 05:25 [facility] Social History household members: none Smoking Status: Former smoker alcohol intake: current Assessment & Plan Assessment & Plan narrative: 61 yo male with persistent air leak. Bleb disease scene on CT chest. Plan: discuss with Murtaza Aguiar for possible surgical intervention that would require transfer. COVID-19 COVID-19 status: Negative Time Spent With Patient Time with patient: 30 to 49 minutes with 50% spent counseling/coordinating care Critical Care time: I spent a total of [] minutes of critical care time on this patient's care today; this time is exclusive of procedural time. Quality VTE Deep Vein Thrombosis/Pulmonary Embolism Present on Admission: No
--- NOTE | 2021-09-07 16:46 | PM.PN.1 ---
Subjective Subjective Date Patient Seen: 09/07/21 Time Patient Seen: 08:00 Interval history: He feels well. He has no shortness of breath. He has controlled pain at chest tube site. Exam Vital Signs (past 8 hours): - 09/07/21 12:00 Temperature 98.6 F Pulse Rate 74 Respiratory Rate 16 Blood Pressure 105/54 L Pulse Oximetry 93 Oxygen Delivery Method Room Air Oxygen Flow Rate 0 Narrative Exam Narrative: General: no acute distress Lungs: clear bilaterally Cardiac: Regular rhythm Extremities: No edema Objective Labs Result Diagrams: 09/03/21 05:25 09/03/21 05:25 [facility] Social History household members: none Smoking Status: Former smoker alcohol intake: current Assessment & Plan Assessment & Plan narrative: 1.? Right lung spontaneous pneumothorax -chest tube has now been reinserted several times likely due to open area above the 1st chest tube insertion -follow-up chest x-ray post chest tube drain surgeon -O2 PRN -hydromorphone and lorazepam as needed 2. Acute urinary retention -Amaya placed 09/02 -tamsulosin started -attempt Amaya removal prior to discharge 3. History of ETOH abuse -no evidence of ETOH withdrawal -discontinued Librium and gabapentin 4. Hypertension, stable -continue med 5.? Diabetes, well controlled -continue metformin Time Spent With Patient Critical Care time: I spent a total of [] minutes of critical care time on this patient's care today; this time is exclusive of procedural time. Quality VTE Deep Vein Thrombosis/Pulmonary Embolism Present on Admission: No
--- NOTE | 2021-09-07 18:35 | PC.NURSE ---
Addendum entered by Marla Contreras R.N. 09/07/21 19:05: bladder scanned for 792cc urine in/out catheter for 925mls Original Note: PT WITHOUT VOID FOR SEVERAL HOURS AFTER CATHETER REMOVAL- HE STATES HE HAS URINATED X 2 NONE VISUALIZED BY STAFF- AWAITING BLADDER SCAN BY FRUIT PRESERVER AT THIS TIME- DID MOVE BOWELS AND INCREASED OXYCODONE DOSE TO 10MG WHICH HAS BEEN EFFECTIVE - IV DOSE OF 1MG DILAUDID GIVEN PRIOR TO PLANNED CHEST TUBE REMOVAL BUT DR LE ASSESSED CONTINUED AIR LEAK AND CHOSE TO TAKE DOWN DRESSING AND REAPPLY AFTER VIEWING CHEST CT- DECISION MADE TO LEAVE CHEST TUBE IN -
[2021-09-07] MEDS: ATORVASTATIN 20 MG TABLET PO (20:10)
[2021-09-07] MEDS: MELATONIN 3 MG TABLET 9 MG PO (20:10)
[2021-09-07] MEDS: SODIUM CHLORIDE 0.9% FLUSH 10 ML IV (20:20)
[2021-09-08 01:15] VITALS: BP 140/72; PULSE 70; RESP 18; TEMP 36.8; O2SAT 92
[2021-09-08] MEDS: OXYCODONE IR 5 MG TABLET 10 MG PO (03:47)
[2021-09-08 05:00] VITALS: BP 146/72; PULSE 71; RESP 18; TEMP 36.7; O2SAT 95
--- NOTE | 2021-09-08 06:11 | PC.NURSE ---
Patient unable to void on his own after several attempts. Bladder scan results showed 571ml. In/out cath 610 ml.
[2021-09-08 08:00] VITALS: BP 117/69; PULSE 66; RESP 17; TEMP 36.3
--- NOTE | 2021-09-08 09:27 | PM.PN.1 ---
Subjective Subjective Date Patient Seen: 09/08/21 Time Patient Seen: 06:30 Interval history: No changes except urinary retention Exam Vital Signs (past 8 hours): - 09/08/21 05:00 09/08/21 08:00 Temperature 98.1 F 97.3 F L Pulse Rate 71 66 Respiratory Rate 18 17 Blood Pressure 146/72 H 117/69 Pulse Oximetry 95 Oxygen Delivery Method Room Air Oxygen Flow Rate 0 Narrative Exam Narrative: bilateral BS, on going air leak Objective Labs Result Diagrams: 09/03/21 05:25 09/03/21 05:25 [facility] Social History household members: none Smoking Status: Former smoker alcohol intake: current Assessment & Plan Assessment & Plan narrative: Bleb disease of bilateral lungs. Stopped smoking 15 years ago. On going airleak that will require intervention. Discussed with Dr Aguiar at [facility] Thoracic surgery for transfer. continue chest tube on water seal. Time Spent With Patient Critical Care time: I spent a total of [] minutes of critical care time on this patient's care today; this time is exclusive of procedural time. Quality VTE Deep Vein Thrombosis/Pulmonary Embolism Present on Admission: No
[2021-09-08] MEDS: METFORMIN XR 500 MG TABLET 1000 MG PO ×2 (09:58→17:52)
[2021-09-08] MEDS: GABAPENTIN 300 MG CAPSULE PO ×2 (09:59→20:30)
[2021-09-08] MEDS: ENOXAPARIN 40 MG/0.4 ML SYRINGE SUBCUT (09:59)
[2021-09-08] MEDS: FOLIC ACID 1 MG TABLET PO (09:59)
[2021-09-08] MEDS: MULTIVITAMIN 1 TABLET 1 TAB PO (09:59)
[2021-09-08] MEDS: TAMSULOSIN 0.4 MG CAPSULE 0.8 MG PO (09:59)
[2021-09-08] MEDS: LOSARTAN 25 MG TABLET PO (10:00)
[2021-09-08] MEDS: SODIUM CHLORIDE 0.9% FLUSH 10 ML IV ×2 (10:01→20:31)
[2021-09-08] MEDS: BACITRACIN 28 GM OINT 1 APPLIC TOP ×2 (10:02→20:31)
[2021-09-08] MEDS: CELECOXIB 200 MG CAPSULE PO ×2 (10:02→20:36)
[2021-09-08 12:00] VITALS: BP 130/70; PULSE 73; RESP 16; TEMP 36.8; O2SAT 94
--- NOTE | 2021-09-08 12:35 | PM.PN.1 ---
Subjective Subjective Date Patient Seen: 09/08/21 Time Patient Seen: 08:00 Interval history: Today he denies any shortness of breath or pain. He is awaiting transfer to repair pneumothorax Exam Vital Signs (past 8 hours): - 09/08/21 05:00 09/08/21 08:00 09/08/21 12:00 Temperature 98.1 F 97.3 F L 98.3 F Pulse Rate 71 66 73 Respiratory Rate 18 17 16 Blood Pressure 146/72 H 117/69 130/70 Pulse Oximetry 95 94 Oxygen Delivery Method Room Air Oxygen Flow Rate 0 Narrative Exam Narrative: General: no acute distress Lungs: clear bilaterally Cardiac: Regular rhythm Extremities: No edema Objective Labs Result Diagrams: 09/03/21 05:25 09/03/21 05:25 [facility] Social History household members: none Smoking Status: Former smoker alcohol intake: current Assessment & Plan Assessment & Plan narrative: 1.? Right lung spontaneous pneumothorax -chest tube has now been reinserted several times likely due to open area above the 1st chest tube insertion -O2 PRN -hydromorphone and lorazepam as needed -patient has ongoing air leak in chest tube, discussed with general surgeon who recommends transfer for repair with CT surgery 2. Acute urinary retention -Amaya placed 09/02 -tamsulosin started -attempt Amaya removal prior to discharge 3. History of ETOH abuse -no evidence of ETOH withdrawal -discontinued Librium and gabapentin 4. Hypertension, stable -continue med 5.? Diabetes, well controlled -continue metformin Time Spent With Patient Critical Care time: I spent a total of [] minutes of critical care time on this patient's care today; this time is exclusive of procedural time. Quality VTE Deep Vein Thrombosis/Pulmonary Embolism Present on Admission: No
[2021-09-08 16:00] VITALS: BP 105/71; PULSE 74; RESP 16; TEMP 36.2; O2SAT 94
[2021-09-08 20:00] VITALS: BP 140/75; PULSE 68; RESP 18; TEMP 36.6; O2SAT 96
[2021-09-08] MEDS: SENNOSIDES 8.6 MG TABLET 17.2 MG PO (20:30)
[2021-09-08] MEDS: ATORVASTATIN 20 MG TABLET PO (20:30)
[2021-09-08] MEDS: MELATONIN 3 MG TABLET 9 MG PO (20:31)
[2021-09-09] VITALS (7 sets, daily range): BP systolic 107–127; BP diastolic 63–76; PULSE 61–75; RESP 16–18; TEMP 36–37; O2SAT 94–98
[2021-09-09] MEDS: TAMSULOSIN 0.4 MG CAPSULE 0.8 MG PO (09:00)
[2021-09-09] MEDS: ENOXAPARIN 40 MG/0.4 ML SYRINGE SUBCUT (09:01)
[2021-09-09] MEDS: CELECOXIB 200 MG CAPSULE PO ×2 (09:02→21:12)
[2021-09-09] MEDS: LOSARTAN 25 MG TABLET PO (09:03)
[2021-09-09] MEDS: GABAPENTIN 300 MG CAPSULE PO ×2 (09:03→21:12)
[2021-09-09] MEDS: MULTIVITAMIN 1 TABLET 1 TAB PO (09:03)
[2021-09-09] MEDS: FOLIC ACID 1 MG TABLET PO (09:04)
[2021-09-09] MEDS: BACITRACIN 28 GM OINT 1 APPLIC TOP ×2 (09:05→21:12)
[2021-09-09] MEDS: METFORMIN XR 500 MG TABLET 1000 MG PO ×2 (09:17→17:01)
[2021-09-09] MEDS: SODIUM CHLORIDE 0.9% FLUSH 10 ML IV ×2 (10:19→21:13)
--- NOTE | 2021-09-09 11:37 | PM.PN.1 ---
Subjective Subjective Date Patient Seen: 09/09/21 Time Patient Seen: 11:37 Interval history: no issues Exam Vital Signs (past 8 hours): - 09/09/21 06:11 09/09/21 08:07 09/09/21 09:03 Temperature 97.2 F L 98.1 F Pulse Rate 61 61 61 Respiratory Rate 17 16 Blood Pressure 125/63 122/72 122/72 Pulse Oximetry 94 95 Oxygen Delivery Method Room Air Oxygen Flow Rate 0 Narrative Exam Narrative: unchanged Objective Labs Result Diagrams: 09/03/21 05:25 09/03/21 05:25 [facility] Social History household members: none Smoking Status: Former smoker alcohol intake: current Assessment & Plan Assessment & Plan narrative: Recommend transfer to [facility] for surgery with Dr. Murtaza Aguiar. Dr. Aguiar will return on Monday, but hospitalist should be asked to accept and general surgery to consult until he is back. Time Spent With Patient Critical Care time: I spent a total of [] minutes of critical care time on this patient's care today; this time is exclusive of procedural time. Quality VTE Deep Vein Thrombosis/Pulmonary Embolism Present on Admission: No
--- NOTE | 2021-09-09 13:50 | P.PN_ITS ---
Subjective Subjective Date Patient Seen: 09/09/21 Time Patient Seen: 08:00 Interval history: Today he has no complaints. No chest pain, no shortness of breath. Exam Vital Signs (past 8 hours): - 09/09/21 06:11 09/09/21 08:07 09/09/21 09:03 Temperature 97.2 F L 98.1 F Pulse Rate 61 61 61 Respiratory Rate 17 16 Blood Pressure 125/63 122/72 122/72 Pulse Oximetry 94 95 09/09/21 12:00 Temperature 98.6 F Pulse Rate 75 Respiratory Rate 16 Blood Pressure 127/76 Pulse Oximetry 98 Oxygen Delivery Method Room Air Oxygen Flow Rate 0 Narrative Exam Narrative: General: no acute distress Lungs: clear bilaterally, right chest tube in place Cardiac: Regular rhythm Extremities: No edema Objective Labs Result Diagrams: 09/03/21 05:25 09/03/21 05:25 [facility] Social History household members: none Smoking Status: Former smoker alcohol intake: current Assessment & Plan Assessment & Plan narrative: 1.? Right lung spontaneous pneumothorax -chest tube has now been reinserted several times likely due to open area above the 1st chest tube insertion -O2 PRN -hydromorphone and lorazepam as needed -patient has ongoing air leak in chest tube, discussed with general surgeon who recommends transfer for repair with CT surgery 2. Acute urinary retention -Amaya placed 09/02 -tamsulosin started -attempt Amaya removal prior to discharge 3. History of ETOH abuse -no evidence of ETOH withdrawal -discontinued Librium and gabapentin 4. Hypertension, stable -continue med 5.? Diabetes, well controlled -continue metformin Time Spent With Patient Critical Care time: I spent a total of [] minutes of critical care time on this patient's care today; this time is exclusive of procedural time. Quality VTE Deep Vein Thrombosis/Pulmonary Embolism Present on Admission: No
--- NOTE | 2021-09-09 16:22 | PC.NURSE ---
Patient has been up independently 3x during the shift so far to void, unmeasured.
[2021-09-09] MEDS: ATORVASTATIN 20 MG TABLET PO (21:12)
[2021-09-09] MEDS: MELATONIN 3 MG TABLET 9 MG PO (21:12)
[2021-09-10 04:00] VITALS: BP 109/68; PULSE 76; RESP 16; TEMP 36.6; O2SAT 97
[2021-09-10] MEDS: OXYCODONE IR 5 MG TABLET 10 MG PO (06:01)
[2021-09-10 08:00] VITALS: BP 119/69; PULSE 59; RESP 17; TEMP 36.4; O2SAT 95
[2021-09-10] MEDS: METFORMIN XR 500 MG TABLET 1000 MG PO ×2 (08:11→17:05)
[2021-09-10] MEDS: BACITRACIN 28 GM OINT 1 APPLIC TOP ×2 (09:38→21:02)
[2021-09-10] MEDS: GABAPENTIN 300 MG CAPSULE PO ×2 (09:38→20:58)
[2021-09-10] MEDS: FOLIC ACID 1 MG TABLET PO (09:38)
[2021-09-10] MEDS: CELECOXIB 200 MG CAPSULE PO ×2 (09:38→20:58)
[2021-09-10] MEDS: ENOXAPARIN 40 MG/0.4 ML SYRINGE SUBCUT (09:38)
[2021-09-10] MEDS: MULTIVITAMIN 1 TABLET 1 TAB PO (09:39)
[2021-09-10] MEDS: SODIUM CHLORIDE 0.9% FLUSH 10 ML IV ×2 (09:39→21:03)
[2021-09-10] MEDS: LOSARTAN 25 MG TABLET PO (09:39)
[2021-09-10] MEDS: TAMSULOSIN 0.4 MG CAPSULE 0.8 MG PO (09:39)
--- NOTE | 2021-09-10 10:49 | PM.PN.1 ---
Subjective Subjective Date Patient Seen: 09/10/21 Time Patient Seen: 08:00 Interval history: No change in his symptoms. No pain, no cough, no shortness of breath. Exam Vital Signs (past 8 hours): - 09/10/21 04:00 09/10/21 08:00 Temperature 97.8 F 97.5 F L Pulse Rate 76 59 L Respiratory Rate 16 17 Blood Pressure 109/68 119/69 Pulse Oximetry 97 95 Oxygen Delivery Method Room Air Oxygen Flow Rate 0 Narrative Exam Narrative: General: no acute distress Lungs: clear bilaterally, right chest tube in place Cardiac: Regular rhythm Extremities: No edema Objective Labs Result Diagrams: 09/03/21 05:25 09/03/21 05:25 [facility] Social History household members: none Smoking Status: Former smoker alcohol intake: current Assessment & Plan Assessment & Plan narrative: 1.? Right lung spontaneous pneumothorax -chest tube has now been reinserted several times likely due to open area above the 1st chest tube insertion -O2 PRN -hydromorphone and lorazepam as needed -patient has ongoing air leak in chest tube, discussed with general surgeon who recommends transfer for repair with CT surgery 2. Acute urinary retention -Amaya placed 09/02 -tamsulosin started -attempt Amaya removal prior to discharge 3. History of ETOH abuse -no evidence of ETOH withdrawal -discontinued Librium and gabapentin 4. Hypertension, stable -continue med 5.? Diabetes, well controlled -continue metformin Time Spent With Patient Critical Care time: I spent a total of [] minutes of critical care time on this patient's care today; this time is exclusive of procedural time. Quality VTE Deep Vein Thrombosis/Pulmonary Embolism Present on Admission: No
[2021-09-10 12:00] VITALS: BP 154/77; PULSE 61; RESP 16; TEMP 36.4; O2SAT 94
--- NOTE | 2021-09-10 14:34 | CM.DPNOTE ---
DCP Note Chart Review. Patient awaiting transfer to [facility] for surgery; patient has ongoing air leak in chest tube, which general surgeon recommends transfer for repair with CT surgery CM team will plan to reassess DC needs if patient remains at for ongoing medical management JW
[2021-09-10 17:30] VITALS: BP 125/65; PULSE 65; RESP 18; TEMP 36.6; O2SAT 96
[2021-09-10 20:00] VITALS: BP 174/63; PULSE 71; RESP 18; TEMP 37.1; O2SAT 97
[2021-09-10 20:30] VITALS: PULSE 71; RESP 16; O2SAT 97
[2021-09-10] MEDS: ATORVASTATIN 20 MG TABLET PO (20:58)
[2021-09-10] MEDS: MELATONIN 3 MG TABLET 9 MG PO (20:58)
[2021-09-11] VITALS (9 sets, daily range): BP systolic 112–138; BP diastolic 56–72; PULSE 59–70; RESP 15–18; TEMP 36.4–36.8; O2SAT 94–97
[2021-09-11] MEDS: OXYCODONE IR 5 MG TABLET 10 MG PO (04:14)
--- NOTE | 2021-09-11 04:19 | PC.NURSE ---
Pt AOx4. Denied pain at start of shift. Woke from sleep with pain 7/10 at chest tube insertion site. Given oxycodone 10mg. Midline flushed with heparin. He noticed he is having diarrhea more frequently due to the timing of his metformin and meals. Requested that we hold any stool softeners for now. Bacitracin ointment applied to stitches in right axillary. Requested that we remove SCDs for ambulation and uninterrupted sleep. Call light within reach.
--- NOTE | 2021-09-11 08:06 | PC.NURSE ---
Pt independantly up to chair for bf. ct to 20cm water seal, patent and intact, reinforced drsg with tape. RA 97% denies sob or pain at this time. call light within reach will monitor.
[2021-09-11] MEDS: MULTIVITAMIN 1 TABLET 1 TAB PO (08:37)
[2021-09-11] MEDS: ENOXAPARIN 40 MG/0.4 ML SYRINGE SUBCUT (08:37)
[2021-09-11] MEDS: CELECOXIB 200 MG CAPSULE PO ×2 (08:37→20:03)
[2021-09-11] MEDS: LOSARTAN 25 MG TABLET PO (08:38)
[2021-09-11] MEDS: TAMSULOSIN 0.4 MG CAPSULE 0.8 MG PO (08:38)
[2021-09-11] MEDS: FOLIC ACID 1 MG TABLET PO (08:38)
[2021-09-11] MEDS: GABAPENTIN 300 MG CAPSULE PO ×2 (08:38→20:03)
[2021-09-11] MEDS: METFORMIN XR 500 MG TABLET 1000 MG PO ×2 (08:52→18:03)
[2021-09-11] MEDS: BACITRACIN 28 GM OINT 1 APPLIC TOP ×2 (09:25→20:03)
[2021-09-11] MEDS: SODIUM CHLORIDE 0.9% FLUSH 10 ML IV ×2 (09:27→20:04)
--- NOTE | 2021-09-11 11:27 | PM.PN.1 ---
Subjective Subjective Date Patient Seen: 09/11/21 Time Patient Seen: 11:27 Interval history: no change Exam Vital Signs (past 8 hours): - 09/11/21 04:00 09/11/21 07:45 09/11/21 08:38 Temperature 97.9 F 97.5 F L Pulse Rate 60 59 L 70 Respiratory Rate 15 16 Blood Pressure 112/56 L 134/72 135/66 Pulse Oximetry 97 97 Oxygen Delivery Method Room Air Oxygen Flow Rate 0 Narrative Exam Narrative: functioning right chest tube with large air leak Objective Labs Result Diagrams: 09/03/21 05:25 09/03/21 05:25 [facility] Social History household members: none Smoking Status: Former smoker alcohol intake: current Assessment & Plan Assessment & Plan narrative: Awaiting transfer to [facility] and Dr. Murtaza Aguiar COVID-19 COVID-19 status: Negative Time Spent With Patient Time with patient: less than 30 minutes Critical Care time: I spent a total of [] minutes of critical care time on this patient's care today; this time is exclusive of procedural time. Quality VTE Deep Vein Thrombosis/Pulmonary Embolism Present on Admission: No
--- NOTE | 2021-09-11 15:17 | P.PN_ITS ---
Subjective Subjective Date Patient Seen: 09/11/21 Time Patient Seen: 08:00 Interval history: No shortness of breath. No pain Exam Vital Signs (past 8 hours): - 09/11/21 07:45 09/11/21 08:38 09/11/21 12:30 Temperature 97.5 F L 98.1 F Pulse Rate 59 L 70 70 Respiratory Rate 16 18 Blood Pressure 134/72 135/66 116/66 Pulse Oximetry 97 94 09/11/21 12:59 Temperature Pulse Rate Respiratory Rate Blood Pressure Pulse Oximetry 94 Oxygen Delivery Method Room Air Oxygen Flow Rate 0 Narrative Exam Narrative: General: no acute distress Lungs: clear bilaterally, right chest tube in place Cardiac: Regular rhythm Extremities: No edema Objective Labs Result Diagrams: 09/03/21 05:25 09/03/21 05:25 [facility] Social History household members: none Smoking Status: Former smoker alcohol intake: current Assessment & Plan Assessment & Plan narrative: 1.? Right lung spontaneous pneumothorax -chest tube has now been reinserted several times likely due to open area above the 1st chest tube insertion -O2 PRN -hydromorphone and lorazepam as needed -patient has ongoing air leak in chest tube, discussed with general surgeon who recommends transfer for repair with CT surgery 2. Acute urinary retention -Amaya placed 09/02 -tamsulosin started -attempt Amaya removal prior to discharge 3. History of ETOH abuse -no evidence of ETOH withdrawal -discontinued Librium and gabapentin 4. Hypertension, stable -continue med 5.? Diabetes, well controlled -continue metformin Time Spent With Patient Critical Care time: I spent a total of [] minutes of critical care time on this patient's care today; this time is exclusive of procedural time. Quality VTE Deep Vein Thrombosis/Pulmonary Embolism Present on Admission: No
[2021-09-11] MEDS: MELATONIN 3 MG TABLET 9 MG PO (20:02)
[2021-09-11] MEDS: ATORVASTATIN 20 MG TABLET PO (20:03)
[2021-09-12] VITALS (7 sets, daily range): BP systolic 115–139; BP diastolic 65–84; PULSE 50–82; RESP 14–20; TEMP 36.1–37.3; O2SAT 96–98
[2021-09-12] MEDS: CELECOXIB 200 MG CAPSULE PO ×2 (08:35→21:25)
[2021-09-12] MEDS: MULTIVITAMIN 1 TABLET 1 TAB PO (08:36)
[2021-09-12] MEDS: ENOXAPARIN 40 MG/0.4 ML SYRINGE SUBCUT (08:36)
[2021-09-12] MEDS: TAMSULOSIN 0.4 MG CAPSULE 0.8 MG PO (08:36)
[2021-09-12] MEDS: METFORMIN XR 500 MG TABLET 1000 MG PO ×2 (08:36→17:24)
[2021-09-12] MEDS: FOLIC ACID 1 MG TABLET PO (08:37)
[2021-09-12] MEDS: BACITRACIN 28 GM OINT 1 APPLIC TOP ×2 (08:37→21:25)
[2021-09-12] MEDS: LOSARTAN 25 MG TABLET PO (08:37)
[2021-09-12] MEDS: GABAPENTIN 300 MG CAPSULE PO ×2 (08:39→21:24)
[2021-09-12] MEDS: SODIUM CHLORIDE 0.9% FLUSH 10 ML IV ×2 (08:41→21:25)
--- NOTE | 2021-09-12 08:57 | PC.NURSE ---
Pt up in chair taking po well, denies pain, chest tube to right chest intact and patent draining yellowish to bloody fluid into atrium 20cm to gravity. Denies SOB spo2 96% on RA.
--- NOTE | 2021-09-12 11:17 | P.PN_ITS ---
Subjective Subjective Date Patient Seen: 09/12/21 Time Patient Seen: 11:17 Interval history: No interval change Exam Vital Signs (past 8 hours): - 09/12/21 06:00 09/12/21 08:00 Temperature 97.0 F L 97.4 F L Pulse Rate 50 L 51 L Respiratory Rate 16 18 Blood Pressure 123/65 121/66 Pulse Oximetry 97 96 Oxygen Delivery Method Room Air Oxygen Flow Rate 0 Narrative Exam Narrative: Adult male no distress with a right chest tube with air leak. Objective Labs Result Diagrams: 09/03/21 05:25 09/03/21 05:25 [facility] Social History household members: none Smoking Status: Former smoker alcohol intake: current Assessment & Plan Assessment and plan (1) Pneumothorax on right: Status: Acute Assessment & Plan narrative: Transfer to facility with thoracic surgery capability. Time Spent With Patient Critical Care time: I spent a total of [] minutes of critical care time on this patient's care today; this time is exclusive of procedural time. Quality VTE Deep Vein Thrombosis/Pulmonary Embolism Present on Admission: No
--- NOTE | 2021-09-12 17:14 | P.PN_ITS ---
Subjective Subjective Date Patient Seen: 09/12/21 Interval history: NO SIGNIFICANT ISSUES REPORTED BY NURSING OVERNIGHT PATIENT HAD NO SPECIFIC COMPLAINTS HE STATED THAT HE IS AWARE THAT HE IS PENDING TRANSFER FOR POSSIBLE CARDIOTHORACIC SURGERY EVALUATION Exam Vital Signs (past 8 hours): - 09/12/21 11:36 09/12/21 12:35 09/12/21 16:00 Temperature 99.2 F 98.4 F Pulse Rate 67 82 59 L Respiratory Rate 20 16 18 Blood Pressure 130/70 139/77 Pulse Oximetry 96 96 97 Oxygen Delivery Method Room Air Oxygen Flow Rate 0 Narrative Exam Narrative: NO ACUTE DISTRESS. PATIENT IS ALERT ORIENTED X3. HEAD ATRAUMATIC NORMOCEPHALIC NECK : SUPPLE WITHOUT ADENOPATHY NO CAROTID BRUITS EYE: EOMI, PERRLA, NORMAL CONJUNCTIVA; NO JAUNDICE CHEST: REGULAR RATE. NO RUBS. PMI IS NON DISPLACED. NO MURMURS; NORMAL S1- S2 PULMONARY: DECREASED BS OVER THE BASES. MILD BIBASILAR CRACKLES NOTED; NO INCREASED DULLNESS TO PERCUSSION CHEST TUBE THE RIGHT SIDE. NO SIGN OF INFECTION AT THE SITE OF INSERTION OF THE TUBE ABDOMEN: SOFT. NONTENDER. NONDISTENDED. BOWEL SOUNDS ARE PRESENT IN ALL 4 QUADRANTS. NO MASS. EXTREMITIES: NO EDEMA.. NO CYANOSIS CLUBBING NOTED. NEURO: CRANIAL NERVES 2-12 GROSSLY INTACT. NO FOCAL NEUROLOGICAL DEFICIT NOTED. MSK: NORMAL RANGE OF MOTION FOR AGE. NO JOINT EFFUSION. SKIN: NORMAL FOR ETHNICITY; NO ECCHYMOSIS. NO LESION. GOOD TURGOR.; NO RASHES PSYCH : APPROPRIATE MOOD AND AFFECT. ALERT AWAKE ORIENTED X3 Objective Labs Result Diagrams: 09/03/21 05:25 09/03/21 05:25 [facility] Social History household members: none Smoking Status: Former smoker alcohol intake: current Assessment & Plan Assessment & Plan narrative: PROBLEM LIST SPONTANEOUS PNEUMOTHORAX.? CHEST TUBE? INSERTED SINCE 09/01. LEAK REPORTED. SURGERY ON BOARD MORBID OBESITY.? EXTENSIVE COUNSELING GIVEN POSSIBLE COPD WITHOUT SIGNS OF ACUTE EXACERBATION.? MONITOR CLOSELY ESSENTIAL HYPERTENSION.? CONTINUE HOME MEDS DIABETES TYPE 2 PER HISTORY.? [id number] HYPERLIPIDEMIA PER HISTORY POSSIBLE ETOH ABUSE.? MONITOR CLOSELY PLAN PATIENT HAS BEEN REFERRED TO TERTIARY FACILITY FOR EVALUATION BY CARDIOTHORACIC SURGERY CHEST TUBE HAS BEEN UNABLE TO REMOVE HERE AT [facility] ASSISTANCE FROM GENERAL SURGERY GREATLY APPRECIATED WILL REACH OUT TO OTHER TERTIARY FACILITIES WELL TO SICK FOR HELP IN THIS CASE IF UNABLE TO OBTAIN AN OPEN BED AT [facility] CONTINUE TO MONITOR CLOSELY ENCOURAGE PATIENT TO STAY MOBILE POSSIBLE PATIENT TO BE ELEVATED WITH EACH MEAL NURSING TO ENCOURAGE PATIENT TO USE INCENTIVE SPIROMETER DEVICE ORDERED ADDITIONAL MANAGEMENT PER CLINICAL COURSE Time Spent With Patient Critical Care time: I spent a total of [] minutes of critical care time on this patient's care today; this time is exclusive of procedural time. Quality VTE Deep Vein Thrombosis/Pulmonary Embolism Present on Admission: No
[2021-09-12] MEDS: ATORVASTATIN 20 MG TABLET PO (21:24)
[2021-09-12] MEDS: SENNOSIDES 8.6 MG TABLET 17.2 MG PO (21:24)
[2021-09-12] MEDS: MELATONIN 3 MG TABLET 9 MG PO (21:24)
[2021-09-13] MEDS: OXYCODONE IR 5 MG TABLET PO (03:58)
[2021-09-13 06:00] VITALS: BP 119/60; PULSE 53; RESP 14; TEMP 36.7; O2SAT 94
[2021-09-13] MEDS: ENOXAPARIN 40 MG/0.4 ML SYRINGE SUBCUT (08:53)
[2021-09-13] MEDS: TAMSULOSIN 0.4 MG CAPSULE 0.8 MG PO (08:53)
[2021-09-13] MEDS: CELECOXIB 200 MG CAPSULE PO ×2 (08:54→20:30)
[2021-09-13] MEDS: GABAPENTIN 300 MG CAPSULE PO ×2 (08:54→20:30)
[2021-09-13] MEDS: FOLIC ACID 1 MG TABLET PO (08:54)
[2021-09-13] MEDS: LOSARTAN 25 MG TABLET PO (08:54)
[2021-09-13] MEDS: SODIUM CHLORIDE 0.9% FLUSH 10 ML IV ×2 (08:54→21:47)
[2021-09-13] MEDS: METFORMIN XR 500 MG TABLET 1000 MG PO ×2 (08:54→17:10)
[2021-09-13] MEDS: MULTIVITAMIN 1 TABLET 1 TAB PO (08:54)
[2021-09-13] MEDS: BACITRACIN 28 GM OINT 1 APPLIC TOP ×2 (08:55→20:30)
[2021-09-13 10:10] VITALS: BP 108/73; PULSE 58; RESP 18; TEMP 36.7; O2SAT 95
--- NOTE | 2021-09-13 10:17 | P.PN_ITS ---
Subjective Subjective Date Patient Seen: 09/13/21 Time Patient Seen: 10:17 Interval history: no interval change. Awaiting transfer. Exam Vital Signs (past 8 hours): - 09/13/21 06:00 Temperature 98.1 F Pulse Rate 53 L Respiratory Rate 14 Blood Pressure 119/60 Pulse Oximetry 94 Oxygen Delivery Method Room Air Oxygen Flow Rate 0 Narrative Exam Narrative: Adult man with no acute distress breathing comfortably. Chest-R chest tube with air leak. Objective Labs Result Diagrams: 09/03/21 05:25 09/03/21 05:25 [facility] Social History household members: none Smoking Status: Former smoker alcohol intake: current Assessment & Plan Assessment & Plan narrative: 61M with recurrent R pneumothorax. -Continue chest tube at current settings -Requires transfer to an institution with thoracic surgery capability or discharge with Heimlich valve. Time Spent With Patient Critical Care time: I spent a total of [] minutes of critical care time on this patient's care today; this time is exclusive of procedural time. Quality VTE Deep Vein Thrombosis/Pulmonary Embolism Present on Admission: No
[2021-09-13 15:22] VITALS: BP 102/54; PULSE 66; RESP 18; TEMP 36.7; O2SAT 97
[2021-09-13 16:46] VITALS: O2SAT 94
--- NOTE | 2021-09-13 18:00 | P.PN_ITS ---
Subjective Subjective Date Patient Seen: 09/13/21 Interval history: NO SIGNIFICANT ISSUES REPORTED BY NURSING OVERNIGHT PATIENT HAD NO SPECIFIC COMPLAINTS AWARE OF THE DIFFICULTY TO TRY AND TRANSFER FOR POSSIBLE CARDIOTHORACIC SURGERY EVALUATION AT A TERTIARY FACILITY Exam Vital Signs (past 8 hours): - 09/13/21 10:10 09/13/21 15:22 09/13/21 16:46 Temperature 98.1 F 98.0 F Pulse Rate 58 L 66 Respiratory Rate 18 18 Blood Pressure 108/73 102/54 L Pulse Oximetry 95 97 94 Oxygen Delivery Method Room Air Oxygen Flow Rate 0 Narrative Exam Narrative: NO ACUTE DISTRESS.? PATIENT IS ALERT ORIENTED X3. HEAD ATRAUMATIC NORMOCEPHALIC NECK : SUPPLE WITHOUT ADENOPATHY NO CAROTID BRUITS EYE:? EOMI, PERRLA, NORMAL CONJUNCTIVA; NO JAUNDICE CHEST:? REGULAR RATE.? ? NO RUBS.? PMI IS NON DISPLACED.? NO MURMURS; NORMAL S1- S2 PULMONARY:? DECREASED BS OVER THE BASES.? MILD BIBASILAR CRACKLES NOTED; NO INCREASED DULLNESS TO PERCUSSION CHEST TUBE? THE RIGHT SIDE.? NO SIGN OF INFECTION AT THE SITE OF INSERTION OF THE TUBE ABDOMEN:? SOFT.? NONTENDER.? NONDISTENDED.? BOWEL SOUNDS ARE PRESENT IN ALL 4 QUADRANTS.? NO MASS. EXTREMITIES: NO EDEMA..? NO CYANOSIS CLUBBING NOTED. NEURO:? CRANIAL NERVES 2-12 GROSSLY INTACT. NO FOCAL NEUROLOGICAL DEFICIT NOTED. MSK:? NORMAL RANGE OF MOTION FOR AGE.? NO JOINT EFFUSION. SKIN:? NORMAL FOR ETHNICITY; NO ECCHYMOSIS.? NO LESION. ? GOOD? TURGOR.; NO RASHES PSYCH :? APPROPRIATE MOOD AND AFFECT.? ALERT AWAKE ORIENTED X3 Objective Labs Result Diagrams: 09/03/21 05:25 09/03/21 05:25 [facility] Social History household members: none Smoking Status: Former smoker alcohol intake: current Assessment & Plan Assessment & Plan narrative: PROBLEM LIST SPONTANEOUS PNEUMOTHORAX.? CHEST TUBE? INSERTED SINCE 09/01.? LEAK? REPORTED.? SURGERY ON BOARD MORBID OBESITY.? EXTENSIVE COUNSELING GIVEN POSSIBLE COPD WITHOUT SIGNS OF ACUTE EXACERBATION.? MONITOR CLOSELY ESSENTIAL HYPERTENSION.? CONTINUE HOME MEDS DIABETES TYPE 2 PER HISTORY.? [id number] HYPERLIPIDEMIA PER HISTORY POSSIBLE ETOH ABUSE.? MONITOR CLOSELY PLAN 1/3 ATTEMPT CONTINUE TO BE MADE TO TRANSFER PATIENT TO A TERTIARY FACILITY HOWEVER UNABLE TO SECURE A BED AT THIS TIME CONTINUE CURRENT MANAGEMENT OTHERWISE ASSISTANCE FROM GENERAL SURGERY GREATLY APPRECIATED ADDITIONAL MANAGEMENT PER CLINICAL COURSE 1/2 PATIENT HAS BEEN REFERRED TO TERTIARY FACILITY FOR EVALUATION BY CARDIOTHORACIC SURGERY CHEST TUBE HAS BEEN UNABLE TO REMOVE HERE AT [facility] ASSISTANCE FROM? GENERAL SURGERY GREATLY APPRECIATED WILL REACH OUT TO OTHER TERTIARY FACILITIES WELL TO SICK FOR HELP IN THIS CASE IF UNABLE TO OBTAIN AN OPEN BED AT [facility] CONTINUE TO MONITOR CLOSELY ENCOURAGE PATIENT TO STAY MOBILE POSSIBLE PATIENT TO BE ELEVATED WITH EACH MEAL NURSING TO ENCOURAGE PATIENT TO USE INCENTIVE SPIROMETER DEVICE ORDERED ADDITIONAL MANAGEMENT PER CLINICAL COURSE Time Spent With Patient Critical Care time: I spent a total of [] minutes of critical care time on this patient's care tod ay; this time is exclusive of procedural time. Quality VTE Deep Vein Thrombosis/Pulmonary Embolism Present on Admission: No
[2021-09-13 19:54] VITALS: PULSE 53; RESP 14; O2SAT 97
[2021-09-13] MEDS: ATORVASTATIN 20 MG TABLET PO (20:30)
[2021-09-13] MEDS: SENNOSIDES 8.6 MG TABLET 17.2 MG PO (20:30)
[2021-09-13] MEDS: MELATONIN 3 MG TABLET 9 MG PO (20:30)
[2021-09-13 22:00] VITALS: BP 117/55; PULSE 53; RESP 14; TEMP 36.9; O2SAT 97
[2021-09-14] VITALS (7 sets, daily range): BP systolic 117–138; BP diastolic 60–72; PULSE 52–63; RESP 16–21; TEMP 36.4–36.9; O2SAT 94–98
[2021-09-14] MEDS: OXYCODONE IR 5 MG TABLET PO (04:00)
[2021-09-14] MEDS: BACITRACIN 28 GM OINT 1 APPLIC TOP ×2 (09:24→21:06)
[2021-09-14] MEDS: CELECOXIB 200 MG CAPSULE PO ×2 (09:24→20:58)
[2021-09-14] MEDS: METFORMIN XR 500 MG TABLET 1000 MG PO ×2 (09:24→18:23)
[2021-09-14] MEDS: MULTIVITAMIN 1 TABLET 1 TAB PO (09:25)
[2021-09-14] MEDS: ENOXAPARIN 40 MG/0.4 ML SYRINGE SUBCUT (09:25)
[2021-09-14] MEDS: FOLIC ACID 1 MG TABLET PO (09:25)
[2021-09-14] MEDS: TAMSULOSIN 0.4 MG CAPSULE 0.8 MG PO (09:25)
[2021-09-14] MEDS: LOSARTAN 25 MG TABLET PO (09:25)
[2021-09-14] MEDS: GABAPENTIN 300 MG CAPSULE PO ×2 (09:26→20:58)
[2021-09-14] MEDS: SODIUM CHLORIDE 0.9% FLUSH 10 ML IV ×2 (09:31→20:59)
--- NOTE | 2021-09-14 15:46 | PM.PN.1 ---
Subjective Subjective Date Patient Seen: 09/14/21 Time Patient Seen: 15:49 Interval history: No interval events. Awaiting transfer for thoracic surgery. Exam Vital Signs (past 8 hours): - 09/14/21 08:50 09/14/21 09:27 09/14/21 13:03 Temperature 97.9 F 98.5 F Pulse Rate 60 63 Respiratory Rate 16 16 Blood Pressure 117/60 125/65 Pulse Oximetry 95 95 95 Oxygen Delivery Method Room Air Oxygen Flow Rate 0 Narrative Exam Narrative: Gen-adult male no distress Chest-Chest tube with serous drainage minimal air leak on water seal Objective Labs Result Diagrams: 09/03/21 05:25 09/03/21 05:25 [facility] Social History household members: none Smoking Status: Former smoker alcohol intake: current Assessment & Plan Assessment and plan (1) Pneumothorax on right: Status: Acute Assessment & Plan narrative: Continue chest tube to water seal Transfer for thoracic surgery bleb resection or discharge with Heimlich valve Time Spent With Patient Critical Care time: I spent a total of [] minutes of critical care time on this patient's care today; this time is exclusive of procedural time. Quality VTE Deep Vein Thrombosis/Pulmonary Embolism Present on Admission: No
--- NOTE | 2021-09-14 17:40 | P.PN_ITS ---
Subjective Subjective Date Patient Seen: 09/14/21 Interval history: NO SIGNIFICANT ISSUES REPORTED BY NURSING OVERNIGHT PATIENT HAD NO SPECIFIC COMPLAINTS ?AWARE OF THE DIFFICULTY TO TRY AND? TRANSFER FOR POSSIBLE CARDIOTHORACIC SURGERY EVALUATION? AT A TERTIARY? FACILITY Exam Vital Signs (past 8 hours): - 09/14/21 13:03 09/14/21 16:27 Temperature 98.5 F 97.6 F Pulse Rate 63 52 L Respiratory Rate 16 21 Blood Pressure 125/65 128/71 Pulse Oximetry 95 98 Oxygen Delivery Method Room Air Oxygen Flow Rate 0 Narrative Exam Narrative: NO ACUTE DISTRESS.? PATIENT IS ALERT ORIENTED X3. HEAD ATRAUMATIC NORMOCEPHALIC NECK : SUPPLE WITHOUT ADENOPATHY NO CAROTID BRUITS EYE:? EOMI, PERRLA, NORMAL CONJUNCTIVA; NO JAUNDICE CHEST:? REGULAR RATE.? ? NO RUBS.? PMI IS NON DISPLACED.? NO MURMURS; NORMAL S1- S2 PULMONARY:? DECREASED BS OVER THE BASES.? MILD BIBASILAR CRACKLES NOTED; NO INCREASED DULLNESS TO PERCUSSION CHEST TUBE? THE RIGHT SIDE.? NO SIGN OF INFECTION AT THE SITE OF INSERTION OF THE TUBE ABDOMEN:? SOFT.? NONTENDER.? NONDISTENDED.? BOWEL SOUNDS ARE PRESENT IN ALL 4 QUADRANTS.? NO MASS. EXTREMITIES: NO EDEMA..? NO CYANOSIS CLUBBING NOTED. NEURO:? CRANIAL NERVES 2-12 GROSSLY INTACT. NO FOCAL NEUROLOGICAL DEFICIT NOTED. MSK:? NORMAL RANGE OF MOTION FOR AGE.? NO JOINT EFFUSION. SKIN:? NORMAL FOR ETHNICITY; NO ECCHYMOSIS.? NO LESION. ? GOOD? TURGOR.; NO RASHES PSYCH :? APPROPRIATE MOOD AND AFFECT.? ALERT AWAKE ORIENTED X3 Objective Labs Result Diagrams: 09/03/21 05:25 09/03/21 05:25 [facility] Social History household members: none Smoking Status: Former smoker alcohol intake: current Assessment & Plan Assessment & Plan narrative: PROBLEM LIST SPONTANEOUS PNEUMOTHORAX.? CHEST TUBE? INSERTED SINCE 09/01.? LEAK? REPORTED.? SURGERY ON BOARD MORBID OBESITY.? EXTENSIVE COUNSELING GIVEN POSSIBLE COPD WITHOUT SIGNS OF ACUTE EXACERBATION.? MONITOR CLOSELY ESSENTIAL HYPERTENSION.? CONTINUE HOME MEDS DIABETES TYPE 2 PER HISTORY.? [id number] HYPERLIPIDEMIA PER HISTORY POSSIBLE ETOH ABUSE.? MONITOR CLOSELY PLAN 09/14 ASSISTANCE FROM GENERAL SURGERY GREATLY APPRECIATED WOULD LIKE TO ASK THE SURGEON ON BOARD TO GO AHEAD WITH THE VALVE PLACEMENT PLANNED PREVIOUSLY IF POSSIBLE WHILE CONTINUING TO ATTEMPT TO TRANSFER PATIENT TO TERTIARY FACILITY MULTIPLE ATTEMPTS HAVE BEEN MADE AT THIS TIME. HOWEVER ALL BEEN UNSUCCESSFUL. WILL REPEAT CHEST X-RAY IN THE MORNING WILL ALSO OBTAIN A PT INR ADDITIONAL MANAGEMENT PER CLINICAL COURSE 09/13 ?ATTEMPT CONTINUE TO BE MADE TO TRANSFER PATIENT TO A TERTIARY FACILITY ?HOWEVER UNABLE TO SECURE A BED AT THIS TIME ?CONTINUE CURRENT MANAGEMENT OTHERWISE ?ASSISTANCE FROM GENERAL SURGERY GREATLY APPRECIATED ? ?ADDITIONAL MANAGEMENT? PER CLINICAL COURSE 09/12 PATIENT HAS BEEN REFERRED TO TERTIARY FACILITY FOR EVALUATION BY CARDIOTHORACIC SURGERY CHEST TUBE HAS BEEN UNABLE TO REMOVE HERE AT [facility] ASSISTANCE FROM? GENERAL SURGERY GREATLY APPRECIATED WILL REACH OUT TO OTHER TERTIARY FACILITIES WELL TO SICK FOR HELP IN THIS CASE IF UNABLE TO OBTAIN AN OPEN BED AT [facility] CONTINUE TO MONITOR CLOSELY ENCOURAGE PATIENT TO STAY MOBILE POSSIBLE PATIENT TO BE ELEVATED WITH EACH MEAL NURSING TO ENCOURAGE PATIENT TO USE INCENTIVE SPIROMETER DEVICE ORDERED ADDITIONAL MANAGEMENT PER CLINICAL COURSE Time Spent With Patient Critical Care time: I spent a total of [] minutes of critical care time on this patient's care t ricci; this time is exclusive of procedural time. Quality VTE Deep Vein Thrombosis/Pulmonary Embolism Present on Admission: No
[2021-09-14] MEDS: MELATONIN 3 MG TABLET 9 MG PO (20:58)
[2021-09-14] MEDS: SENNOSIDES 8.6 MG TABLET 17.2 MG PO (20:58)
[2021-09-14] MEDS: ATORVASTATIN 20 MG TABLET PO (20:58)
[2021-09-15 00:05] VITALS: BP 116/60; PULSE 53; RESP 18; TEMP 36.1; O2SAT 96
[2021-09-15] MEDS: OXYCODONE IR 5 MG TABLET PO (03:54)
[2021-09-15 04:00] VITALS: BP 107/57; PULSE 46; RESP 17; TEMP 36.2; O2SAT 96
--- NOTE | 2021-09-15 06:00 | DI.RAD.S_ITS ---
PROCEDURE: XR CHEST 1V INDICATIONS: Pneumothorax TECHNIQUE: One view of the chest was acquired. COMPARISON: [facility], CR, XR CHEST 1V, 09/07/2021, 5:00. FINDINGS: Surgical changes and devices: Interval repositioning of the right chest tube. Lungs and pleura: Persistent trace right apical pneumothorax. Bibasilar atelectasis. No large pleural effusion. Mediastinum: Mediastinal contours appear normal. The prominence of the cardiac silhouette, partially exaggerated by technique. Bones and chest wall: No suspicious bony lesions. Overlying soft tissues appear unremarkable. IMPRESSION: No significant interval change. Dictated by: Zuhair Montoya M.D. on 09/15/2021 at 9:21 Approved by: Zuhair Montoya M.D. on 09/15/2021 at 9:22
[2021-09-15 06:38] LABS: INR 1.1 (0.9-1.3); Prothrombin Time 12.3 SECONDS (10.1-12.7)
--- NOTE | 2021-09-15 08:12 | CM.DPC ---
Addendum entered by KHOI Gomez 09/15/21 14:09: ADD: SW spoke to Surgeon who is willing to attempt to order Heimlich Valve as it is not currently in stock in the hospital so that pt's chest tube can be capped so he could go home with outpt f/u with Thorasic Surgeon Dr. Aguiar in [facility]. stack supervisor has been coordinating with Narda at [place] with ongoing attempts at hospital transfer today but does not seem likely. BF Original Note: DCP Cont: Per MD, pt remains stable with his chest tube in place and to have xray today to confirm and Surgeon to possibly assist with valve while pt is awaiting hospital transfer for higher level of care for likely cardiothorasic surgery. Per RN, pt now transitioned to room air and tolerating well. Pt has been pleasant and cooperative. Plan: SW to follow closely for ongoing attempts at hospital transfer for higher level of care needs and if pt remains and managed here to determine d/c planning needs. KHOI Gomez
[2021-09-15] MEDS: SENNOSIDES 8.6 MG TABLET 17.2 MG PO ×2 (08:58→21:07)
[2021-09-15] MEDS: ENOXAPARIN 40 MG/0.4 ML SYRINGE SUBCUT (08:58)
[2021-09-15 08:59] VITALS: BP 114/67; PULSE 56
[2021-09-15] MEDS: GABAPENTIN 300 MG CAPSULE PO ×2 (08:59→21:08)
[2021-09-15] MEDS: LOSARTAN 25 MG TABLET PO (08:59)
[2021-09-15] MEDS: FOLIC ACID 1 MG TABLET PO (08:59)
[2021-09-15] MEDS: TAMSULOSIN 0.4 MG CAPSULE 0.8 MG PO (08:59)
[2021-09-15] MEDS: MULTIVITAMIN 1 TABLET 1 TAB PO (08:59)
[2021-09-15] MEDS: CELECOXIB 200 MG CAPSULE PO ×2 (08:59→21:08)
[2021-09-15] MEDS: polyethylene glycoL 3350 17 GM POWD.PACK PO (08:59)
[2021-09-15] MEDS: SODIUM CHLORIDE 0.9% FLUSH 10 ML IV ×2 (09:01→21:08)
[2021-09-15] MEDS: METFORMIN XR 500 MG TABLET 1000 MG PO ×2 (09:02→17:39)
[2021-09-15 09:03] VITALS: BP 114/67; PULSE 56; RESP 15; TEMP 36.7; O2SAT 99
[2021-09-15] MEDS: BACITRACIN 28 GM OINT 1 APPLIC TOP ×2 (11:30→21:11)
[2021-09-15 13:26] LABS: COVID19 - ADMIT (NP swab/PCR) Negative (Negative)
[2021-09-15 13:55] VITALS: BP 114/49; PULSE 82; RESP 17; TEMP 36.8; O2SAT 98
--- NOTE | 2021-09-15 14:39 | P.PN_ITS ---
Subjective Subjective Date Patient Seen: 09/15/21 Interval history: NO SIGNIFICANT ISSUES REPORTED BY NURSING OVERNIGHT PATIENT HAD NO SPECIFIC COMPLAINTS ?AWARE OF THE DIFFICULTY TO TRY AND? TRANSFER FOR POSSIBLE CARDIOTHORACIC SURGERY EVALUATION? AT A TERTIARY? FACILITY Exam Vital Signs (past 8 hours): - 09/15/21 08:59 09/15/21 09:03 09/15/21 13:55 Temperature 98.1 F 98.3 F Pulse Rate 56 L 56 L 82 Respiratory Rate 15 17 Blood Pressure 114/67 114/67 114/49 L Pulse Oximetry 99 98 Oxygen Delivery Method Room Air Oxygen Flow Rate 0 Narrative Exam Narrative: NO ACUTE DISTRESS.? PATIENT IS ALERT ORIENTED X3. HEAD ATRAUMATIC NORMOCEPHALIC NECK : SUPPLE WITHOUT ADENOPATHY NO CAROTID BRUITS EYE:? EOMI, PERRLA, NORMAL CONJUNCTIVA; NO JAUNDICE CHEST:? REGULAR RATE.? ? NO RUBS.? PMI IS NON DISPLACED.? NO MURMURS; NORMAL S1- S2 PULMONARY:? DECREASED BS OVER THE BASES.? MILD BIBASILAR CRACKLES NOTED; NO INCREASED DULLNESS TO PERCUSSION CHEST TUBE? THE RIGHT SIDE.? NO SIGN OF INFECTION AT THE SITE OF INSERTION OF THE TUBE ABDOMEN:? SOFT.? NONTENDER.? NONDISTENDED.? BOWEL SOUNDS ARE PRESENT IN ALL 4 QUADRANTS.? NO MASS. EXTREMITIES: NO EDEMA..? NO CYANOSIS CLUBBING NOTED. NEURO:? CRANIAL NERVES 2-12 GROSSLY INTACT. NO FOCAL NEUROLOGICAL DEFICIT NOTED. MSK:? NORMAL RANGE OF MOTION FOR AGE.? NO JOINT EFFUSION. SKIN:? NORMAL FOR ETHNICITY; NO ECCHYMOSIS.? NO LESION. ? GOOD? TURGOR.; NO RASHES PSYCH :? APPROPRIATE MOOD AND AFFECT.? ALERT AWAKE ORIENTED X3 Objective Labs Result Diagrams: 09/03/21 05:25 09/03/21 05:25 Labs: Laboratory Results - last 24 hr 09/15/21 09/15/21 06:02 09:11 PT 12.3 INR 1.1 SARS-CoV-2 (PCR) Negative [facility] Social History household members: none Smoking Status: Former smoker alcohol intake: current Assessment & Plan Assessment & Plan narrative: PROBLEM LIST SPONTANEOUS PNEUMOTHORAX.? CHEST TUBE? INSERTED SINCE 09/01.? LEAK? REPORTED.? SURGERY ON BOARD MORBID OBESITY.? EXTENSIVE COUNSELING GIVEN POSSIBLE COPD WITHOUT SIGNS OF ACUTE EXACERBATION.? MONITOR CLOSELY ESSENTIAL HYPERTENSION.? CONTINUE HOME MEDS DIABETES TYPE 2 PER HISTORY.? [id number] HYPERLIPIDEMIA PER HISTORY POSSIBLE ETOH ABUSE.? MONITOR CLOSELY PLAN 09/15 X-RAY REPEATED THIS MORNING STILL SHOWING RESIDUAL APICAL PNEUMOTHORAX CHEST TUBE REMAIN IN PLACE PER PRIOR SURGERY TEAM ORDER LABS ARE FAIRLY STABLE VITAL SIGNS ARE STABLE WELL PATIENT REMAINED AFEBRILE CONTINUE TO TRY AND TRANSFER TO TERTIARY FACILITY FOR EVALUATION WITH CARDIOTHORACIC SURGERY TEAM 09/14 ASSISTANCE FROM GENERAL SURGERY GREATLY APPRECIATED WOULD LIKE TO ASK? THE SURGEON ON BOARD TO GO AHEAD WITH THE VALVE PLACEMENT PLANNED PREVIOUSLY IF POSSIBLE WHILE CONTINUING TO ATTEMPT TO TRANSFER PATIENT TO TERTIARY FACILITY MULTIPLE ATTEMPTS HAVE BEEN MADE AT THIS TIME.? HOWEVER ALL BEEN UNSUCCESSFUL. WILL REPEAT CHEST X-RAY IN THE MORNING WILL ALSO OBTAIN A PT INR ADDITIONAL MANAGEMENT PER CLINICAL COURSE 09/13 ?ATTEMPT CONTINUE TO BE MADE TO TRANSFER PATIENT TO A TERTIARY FACILITY ?HOWEVER UNABLE TO SECURE A BED AT THIS TIME ?CONTINUE CURRENT MANAGEMENT OTHERWISE ?ASSISTANCE FROM GENERAL SURGERY GREATLY APPRECIATED ? ?ADDITIONAL MANAGEMENT? PER CLINICAL COURSE 09/12 PATIENT HAS BEEN REFERRED TO TERTIARY FACILITY FOR EVALUATION BY CARDIOTHORACIC SURGERY CHEST TUBE HAS BEEN UNABLE TO REMOVE HERE AT [facility] ASSISTANCE FROM? GENERAL SURGERY GREATLY APPRECIATED WILL REACH OUT TO OTHER TERTIARY FACILITIES WELL TO SICK FOR HELP IN THIS CASE IF UNABLE TO OBTAIN AN OPEN BED AT [facility] CONTINUE TO MONITOR CLOSELY ENCOURAGE PATIENT TO STAY MOBILE POSSIBLE PATIENT TO BE ELEVATED WITH EACH MEAL NURSING TO ENCOURAGE PATIENT TO USE INCENTIVE SPIROMETER DEVICE ORDERED ADDITIONAL MANAGEMENT PER CLINICAL COURSE Time Spent With Patient Critical Care time: I spent a total of [] minutes of critical care time on this patient's care today; this time is exclusive of procedural time. Quality VTE Deep Vein Thrombosis/Pulmonary Embolism Present on Admission: No
--- NOTE | 2021-09-15 17:03 | PM.CALLCOV.1 ---
Call Coverage Note Note Date of Patient Contact: 09/15/21 Time of Patient Contact: 17:03 Narrative of Care Provided: 61 man with a persistent right pneumothorax and air leak with chest tube. Needs thoracic surgery for blebectomy and pleurodesis. -Ordered a heimlich valve today probably to arrive Monday so patient can discharge home with tube and valve and with follow up at [facility] with thoracic surgeon. Alternatively patient can transfer to an institution with thoracic surgery capability.
--- NOTE | 2021-09-15 18:47 | PC.NURSE ---
A&Ox4. VSS. Denies pain. Dressing over chest tube changed and reinforced. bacitracin applied to previous chest tube site. Saline locked. Independent with some assistance in room. Calls appropriately. Good appetite. Waiting placement for surgical operation.
[2021-09-15 20:05] VITALS: BP 137/67; PULSE 60; RESP 18; TEMP 36.7; O2SAT 98
[2021-09-15] MEDS: MELATONIN 3 MG TABLET 9 MG PO (21:08)
[2021-09-15] MEDS: ATORVASTATIN 20 MG TABLET PO (21:08)
[2021-09-16] VITALS: BP 104/56; PULSE 52; RESP 18; TEMP 36.1; O2SAT 98
[2021-09-16] MEDS: OXYCODONE IR 5 MG TABLET PO (02:44)
[2021-09-16 04:00] VITALS: BP 103/50; PULSE 54; RESP 18; TEMP 36.6; O2SAT 95
[2021-09-16 07:48] VITALS: PULSE 52; RESP 16; O2SAT 94
[2021-09-16 08:00] VITALS: BP 114/62; PULSE 53; RESP 16; TEMP 36.2; O2SAT 95
[2021-09-16] MEDS: TAMSULOSIN 0.4 MG CAPSULE 0.8 MG PO (08:09)
[2021-09-16] MEDS: SENNOSIDES 8.6 MG TABLET 17.2 MG PO ×2 (08:09→20:08)
[2021-09-16] MEDS: MULTIVITAMIN 1 TABLET 1 TAB PO (08:10)
[2021-09-16] MEDS: ENOXAPARIN 40 MG/0.4 ML SYRINGE SUBCUT (08:10)
[2021-09-16] MEDS: FOLIC ACID 1 MG TABLET PO (08:10)
[2021-09-16] MEDS: GABAPENTIN 300 MG CAPSULE PO ×2 (08:10→20:08)
[2021-09-16] MEDS: CELECOXIB 200 MG CAPSULE PO ×2 (08:10→20:08)
[2021-09-16] MEDS: LOSARTAN 25 MG TABLET PO (08:11)
[2021-09-16] MEDS: BACITRACIN 28 GM OINT 1 APPLIC TOP ×2 (08:13→20:05)
[2021-09-16] MEDS: METFORMIN XR 500 MG TABLET 1000 MG PO ×2 (08:16→16:56)
[2021-09-16] MEDS: SODIUM CHLORIDE 0.9% FLUSH 10 ML IV ×2 (08:19→20:06)
[2021-09-16 12:00] VITALS: BP 115/54; PULSE 60; RESP 17; TEMP 37; O2SAT 98
--- NOTE | 2021-09-16 12:22 | P.PN_ITS ---
Subjective Subjective Date Patient Seen: 09/16/21 Interval history: NO SIGNIFICANT ISSUES REPORTED BY NURSING OVERNIGHT PATIENT HAD NO SPECIFIC COMPLAINTS ?AWARE OF THE DIFFICULTY TO TRY AND? TRANSFER FOR POSSIBLE CARDIOTHORACIC SURGERY EVALUATION? AT A TERTIARY? FACILITY Exam Vital Signs (past 8 hours): - 09/16/21 07:48 09/16/21 08:00 Temperature 97.1 F L Pulse Rate 52 L 53 L Respiratory Rate 16 16 Blood Pressure 114/62 Pulse Oximetry 94 95 Oxygen Delivery Method Room Air Oxygen Flow Rate 0 Narrative Exam Narrative: NO ACUTE DISTRESS.? PATIENT IS ALERT ORIENTED X3. HEAD ATRAUMATIC NORMOCEPHALIC NECK : SUPPLE WITHOUT ADENOPATHY NO CAROTID BRUITS EYE:? EOMI, PERRLA, NORMAL CONJUNCTIVA; NO JAUNDICE CHEST:? REGULAR RATE.? ? NO RUBS.? PMI IS NON DISPLACED.? NO MURMURS; NORMAL S1- S2 PULMONARY:? DECREASED BS OVER THE BASES.? MILD BIBASILAR CRACKLES NOTED; NO INCREASED DULLNESS TO PERCUSSION CHEST TUBE? THE RIGHT SIDE.? NO SIGN OF INFECTION AT THE SITE OF INSERTION OF THE TUBE ABDOMEN:? SOFT.? NONTENDER.? NONDISTENDED.? BOWEL SOUNDS ARE PRESENT IN ALL 4 QUADRANTS.? NO MASS. EXTREMITIES: NO EDEMA..? NO CYANOSIS CLUBBING NOTED. NEURO:? CRANIAL NERVES 2-12 GROSSLY INTACT. NO FOCAL NEUROLOGICAL DEFICIT NOTED. MSK:? NORMAL RANGE OF MOTION FOR AGE.? NO JOINT EFFUSION. SKIN:? NORMAL FOR ETHNICITY; NO ECCHYMOSIS.? NO LESION. ? GOOD? TURGOR.; NO RASHES PSYCH :? APPROPRIATE MOOD AND AFFECT.? ALERT AWAKE ORIENTED X3 Objective Labs Result Diagrams: 09/03/21 05:25 09/03/21 05:25 Labs: Laboratory Results - last 24 hr 09/15/21 09:11 SARS-CoV-2 (PCR) Negative [facility] Social History household members: none Smoking Status: Former smoker alcohol intake: current Assessment & Plan Assessment & Plan narrative: PROBLEM LIST SPONTANEOUS PNEUMOTHORAX.? CHEST TUBE? INSERTED SINCE 09/01.? LEAK? REPORTED.? S URGERY ON BOARD MORBID OBESITY.? EXTENSIVE COUNSELING GIVEN POSSIBLE COPD WITHOUT SIGNS OF ACUTE EXACERBATION.? MONITOR CLOSELY ESSENTIAL HYPERTENSION.? CONTINUE HOME MEDS DIABETES TYPE 2 PER HISTORY.? [id number] HYPERLIPIDEMIA PER HISTORY POSSIBLE ETOH ABUSE.? MONITOR CLOSELY PLAN 09/16 CONTINUE CURRENT MANAGEMENT FOR NOW AWAITING TRANSFER TO TERTIARY FACILITY ONCE A BED BECOME AVAILABLE 09/15 ?X-RAY REPEATED THIS MORNING STILL SHOWING RESIDUAL APICAL? PNEUMOTHORAX ?CHEST TUBE REMAIN IN PLACE PER PRIOR SURGERY TEAM ORDER LABS ARE FAIRLY STABLE ?VITAL SIGNS ARE STABLE WELL ?PATIENT REMAINED AFEBRILE ?CONTINUE TO TRY AND TRANSFER TO TERTIARY FACILITY? FOR EVALUATION WITH CARDIOTHORACIC SURGERY TEAM 09/14 ASSISTANCE FROM GENERAL SURGERY GREATLY APPRECIATED WOULD LIKE TO ASK? THE SURGEON ON BOARD TO GO AHEAD WITH THE VALVE PLACEMENT PLANNED PREVIOUSLY IF POSSIBLE WHILE CONTINUING TO ATTEMPT TO TRANSFER PATIENT TO TERTIARY FACILITY MULTIPLE ATTEMPTS HAVE BEEN MADE AT THIS TIME.? HOWEVER ALL BEEN UNSUCCESSFUL. WILL REPEAT CHEST X-RAY IN THE MORNING WILL ALSO OBTAIN A PT INR ADDITIONAL MANAGEMENT PER CLINICAL COURSE 09/13 ?ATTEMPT CONTINUE TO BE MADE TO TRANSFER PATIENT TO A TERTIARY FACILITY ?HOWEVER UNABLE TO SECURE A BED AT THIS TIME ?CONTINUE CURRENT MANAGEMENT OTHERWISE ?ASSISTANCE FROM GENERAL SURGERY GREATLY APPRECIATED ? ?ADDITIONAL MANAGEMENT? PER CLINICAL COURSE 09/12 PATIENT HAS BEEN REFERRED TO TERTIARY FACILITY FOR EVALUATION BY CARDIOTHORACIC SURGERY CHEST TUBE HAS BEEN UNABLE TO REMOVE HERE AT [facility] ASSISTANCE FROM? GENERAL SURGERY GREATLY APPRECIATED WILL REACH OUT TO OTHER TERTIARY FACILITIES WELL TO SICK FOR HELP IN THIS CASE IF UNABLE TO OBTAIN AN OPEN BED AT [facility] CONTINUE TO MONITOR CLOSELY ENCOURAGE PATIENT TO STAY MOBILE POSSIBLE PATIENT TO BE ELEVATED WITH EACH MEAL NURSING TO ENCOURAGE PATIENT TO USE INCENTIVE SPIROMETER DEVICE ORDERED ADDITIONAL MANAGEMENT PER CLINICAL COURSE Time Spent With Patient Critical Care time: I spent a total of [] minutes of critical care time on this patient's care today; this time is exclusive of procedural time. Quality VTE Deep Vein Thrombosis/Pulmonary Embolism Present on Admission: No
[2021-09-16 18:02] VITALS: BP 144/60; PULSE 78; RESP 16; TEMP 36.7; O2SAT 97
[2021-09-16] MEDS: MELATONIN 3 MG TABLET 9 MG PO (20:08)
[2021-09-16] MEDS: ATORVASTATIN 20 MG TABLET PO (20:09)
[2021-09-17 03:50] VITALS: BP 102/54; PULSE 62; RESP 14; TEMP 36.6; O2SAT 95
[2021-09-17] MEDS: OXYCODONE IR 5 MG TABLET PO (03:54)
[2021-09-17 08:15] VITALS: BP 119/64; PULSE 55; RESP 16; TEMP 36.6; O2SAT 98
[2021-09-17] MEDS: METFORMIN XR 500 MG TABLET 1000 MG PO ×2 (10:01→19:22)
[2021-09-17] MEDS: GABAPENTIN 300 MG CAPSULE PO ×2 (10:01→20:44)
[2021-09-17] MEDS: TAMSULOSIN 0.4 MG CAPSULE 0.8 MG PO (10:01)
[2021-09-17] MEDS: FOLIC ACID 1 MG TABLET PO (10:01)
[2021-09-17] MEDS: MULTIVITAMIN 1 TABLET 1 TAB PO (10:01)
[2021-09-17] MEDS: LOSARTAN 25 MG TABLET PO (10:01)
[2021-09-17] MEDS: ENOXAPARIN 40 MG/0.4 ML SYRINGE SUBCUT (10:01)
[2021-09-17] MEDS: CELECOXIB 200 MG CAPSULE PO ×2 (10:01→20:44)
[2021-09-17] MEDS: BACITRACIN 28 GM OINT 1 APPLIC TOP ×2 (10:02→20:44)
[2021-09-17] MEDS: SODIUM CHLORIDE 0.9% FLUSH 10 ML IV ×2 (10:03→20:44)
--- NOTE | 2021-09-17 14:42 | PC.NURSE ---
Addendum entered by Brianna Asher R.N. 09/17/21 18:16: Chest tube dressing to R chest C/D/I. Original Note: Assess- Pt A&Ox3, sitting up in chair, no c/o discomfort. Chest tube to R chest to water seal, lung sounds R mid/lower lobe diminished, able to pull up to 2250 on IS. Pt independent with movement around the room, voiding adequately, last BM 09/16, no c/o constipation.
--- NOTE | 2021-09-17 16:16 | DI.RAD.S_ITS ---
PROCEDURE: XR CHEST 1V INDICATIONS: chest xray, changed mechanism of drainage TECHNIQUE: One view of the chest was acquired. COMPARISON: [facility], CR, XR CHEST 1V, 09/15/2021, 5:18. FINDINGS: Surgical changes and devices: Right-sided chest tube is again seen. Lungs and pleura: There is interval significant increase in size of patient's known right-sided pneumothorax with moderate to large right pneumothorax seen on the current study. No left-sided pneumothorax. No pleural effusion. Mediastinum: Mediastinal contours appear normal. Heart size is normal. Bones and chest wall: No suspicious bony lesions. Overlying soft tissues appear unremarkable. IMPRESSION: Interval significant increase in size of patient's known right-sided pneumothorax. Right-sided chest tube in place. No left-sided pneumothorax. Dictated by: Niko Kerr M.D. on 09/17/2021 at 16:42 Approved by: Niko Kerr M.D. on 09/17/2021 at 16:44
--- NOTE | 2021-09-17 16:54 | PC.NURSE ---
Addendum entered by Brianna Asher R.N. 09/17/21 18:43: The Device that attached to patients chest tube is a heimlich valve, with a luken strap that will collect drainage from tube. If patient experiences any sob, we are to call right away, as there were some changes with patients pneumothorax changing in size. He will give further orders. Original Note: 1600- up to see patient and changed chest tube from water seal chamber, to more mobile device that he can discharge home tomorrow with. He will also get some teaching on how to empty drainage in small chamber. Patient may discharge home tomorrow.
--- NOTE | 2021-09-17 17:12 | PM.PN.1 ---
Subjective Subjective Date Patient Seen: 09/17/21 Time Patient Seen: 17:12 Interval history: No changes. Exam Vital Signs (past 8 hours): Oxygen Delivery Method Room Air Oxygen Flow Rate 0 Narrative Exam Narrative: Persistent air leak is noted on the water seal Objective Labs Result Diagrams: 09/03/21 05:25 09/03/21 05:25 [facility] Social History household members: none Smoking Status: Former smoker alcohol intake: current Assessment & Plan Assessment and plan (1) Pneumothorax on right: Status: Acute Plan I spoke to Dr. Ortiz is the thoracic surgeon who operates at [facility]. He can see Adeel on Monday in his office if we send him home with a Heimlich valve. From there he would be able to schedule him for his VATS procedure to address his air leak. Because Adeel lives alone we will transition to the Heimlich valve now and check an x-ray again in the morning and make sure he is breathing well and able to take care of himself. He will have some help from friends malaise at home. Time Spent With Patient Critical Care time: I spent a total of [] minutes of critical care time on this patient's care today; this time is exclusive of procedural time. Quality VTE Deep Vein Thrombosis/Pulmonary Embolism Present on Admission: No
[2021-09-17 17:35] VITALS: BP 119/57; PULSE 56; RESP 16; TEMP 36.6; O2SAT 98
--- NOTE | 2021-09-17 17:36 | P.PN_ITS ---
Subjective Subjective Date Patient Seen: 09/17/21 Interval history: BRIEF HPI THIS IS A 62-YEAR-OLD MALE TRANSFERRED TO THE HOSPITAL ABOUT 18 DAYS AGO. THIS WAS DUE TO PNEUMOTHORAX AND PATIENT HAS A CHEST TUBE IN PLACE HOWEVER LEAKAGE BEEN NOTED ROUND TO AND ATTEMPT TO TRANSFER TO TERTIARY FACILITIES TO BE EVALUATED BY CARDIOTHORACIC SURGERY FELL SO FAR PATIENT IS ON THE TRANSFER LIST AT [facility] TO BE SEEN BY DR. STODDARD TODAY PATIENT HAD NO SPECIFIC COMPLAINT Exam Vital Signs (past 8 hours): Oxygen Delivery Method Room Air Oxygen Flow Rate 0 Narrative Exam Narrative: NO ACUTE DISTRESS.? PATIENT IS ALERT ORIENTED X3. HEAD ATRAUMATIC NORMOCEPHALIC NECK : SUPPLE WITHOUT ADENOPATHY NO CAROTID BRUITS EYE:? EOMI, PERRLA, NORMAL CONJUNCTIVA; NO JAUNDICE CHEST:? REGULAR RATE.? ? NO RUBS.? PMI IS NON DISPLACED.? NO MURMURS; NORMAL S1- S2 PULMONARY:? DECREASED BS OVER THE BASES.? MILD BIBASILAR CRACKLES NOTED; NO INCREASED DULLNESS TO PERCUSSION CHEST TUBE?ON THE RIGHT SIDE.? NO SIGN OF INFECTION AT THE SITE OF INSERTION OF THE TUBE ABDOMEN:? SOFT.? NONTENDER.? NONDISTENDED.? BOWEL SOUNDS ARE PRESENT IN ALL 4 QUADRANTS.? NO MASS. EXTREMITIES: NO EDEMA..? NO CYANOSIS CLUBBING NOTED. NEURO:? CRANIAL NERVES 2-12 GROSSLY INTACT. NO FOCAL NEUROLOGICAL DEFICIT NOTED. MSK:? NORMAL RANGE OF MOTION FOR AGE.? NO JOINT EFFUSION. SKIN:? NORMAL FOR ETHNICITY; NO ECCHYMOSIS.? NO LESION. ? GOOD? TURGOR.; NO RASHES PSYCH :? APPROPRIATE MOOD AND AFFECT.? ALERT AWAKE ORIENTED X3 Objective Labs Result Diagrams: 09/03/21 05:25 09/03/21 05:25 [facility] Social History household members: none Smoking Status: Former smoker alcohol intake: current Assessment & Plan Assessment & Plan narrative: PROBLEM LIST SPONTANEOUS PNEUMOTHORAX.? CHEST TUBE? INSERTED SINCE 09/01.? LEAK? REPORTED.? SURGERY ON BOARD MORBID OBESITY.? EXTENSIVE COUNSELING GIVEN POSSIBLE COPD WITHOUT SIGNS OF ACUTE EXACERBATION.? MONITOR CLOSELY ESSENTIAL HYPERTENSION.? CONTINUE HOME MEDS DIABETES TYPE 2 PER HISTORY.? [id number] HYPERLIPIDEMIA PER HISTORY POSSIBLE ETOH ABUSE.? MONITOR ONLY PLAN 09/17 PER THE SURGICAL TEAM PROGRESS NOTE TODAY, PLAN IS FOR PATIENT TO HAVE THE HIELMICH VALVE PLACEMENT TODAY REPEAT CHEST X-RAY IN THE MORNING IF STABLE PATIENT COULD BE DISCHARGED TO HOME FOLLOW-UP WITH CARDIOTHORACIC SURGERY IN THE OFFICE A [facility] WOULD BE SCHEDULED FOR THURSDAY 09/21 ADDITIONAL MANAGEMENT PER CLINICAL COURSE 09/16 ?CONTINUE CURRENT MANAGEMENT FOR NOW ?AWAITING TRANSFER TO TERTIARY FACILITY ONCE A BED BECOME AVAILABLE 09/15 ?X-RAY REPEATED THIS MORNING STILL SHOWING RESIDUAL APICAL? PNEUMOTHORAX ?CHEST TUBE REMAIN IN PLACE PER PRIOR SURGERY TEAM ORDER LABS ARE FAIRLY STABLE ?VITAL SIGNS ARE STABLE WELL ?PATIENT REMAINED AFEBRILE ?CONTINUE TO TRY AND TRANSFER TO TERTIARY FACILITY? FOR EVALUATION WITH CARDIOTHORACIC SURGERY TEAM 09/14 ASSISTANCE FROM GENERAL SURGERY GREATLY APPRECIATED WOULD LIKE TO ASK? THE SURGEON ON BOARD TO GO AHEAD WITH THE VALVE PLACEMENT PLANNED PREVIOUSLY IF POSSIBLE WHILE CONTINUING TO ATTEMPT TO TRANSFER PATIENT TO TERTIARY FACILITY MULTIPLE ATTEMPTS HAVE BEEN MADE AT THIS TIME.? HOWEVER ALL BEEN UNSUCCESSFUL. WILL REPEAT CHEST X-RAY IN THE MORNING WILL ALSO OBTAIN A PT INR ADDITIONAL MANAGEMENT PER CLINICAL COURSE 09/13 ?ATTEMPT CONTINUE TO BE MADE TO TRANSFER PATIENT TO A TERTIARY FACILITY ?HOWEVER UNABLE TO SECURE A BED AT THIS TIME ?CONTINUE CURRENT MANAGEMENT OTHERWISE ?ASSISTANCE FROM GENERAL SURGERY GREATLY APPRECIATED ? ?ADDITIONAL MANAGEMENT? PER CLINICAL COURSE 09/12 PATIENT HAS BEEN REFERRED TO TERTIARY FACILITY FOR EVALUATION BY CARDIOTHORACIC SURGERY CHEST TUBE HAS BEEN UNABLE TO REMOVE HERE AT [facility] ASSISTANCE FROM? GENERAL SURGERY GREATLY APPRECIATED WILL REACH OUT TO OTHER TERTIARY FACILITIES WELL TO SICK FOR HELP IN THIS CASE IF UNABLE TO OBTAIN AN OPEN BED AT [facility] CONTINUE TO MONITOR CLOSELY ENCOURAGE PATIENT TO STAY MOBILE POSSIBLE PATIENT TO BE ELEVATED WITH EACH MEAL NURSING TO ENCOURAGE PATIENT TO USE INCENTIVE SPIROMETER DEVICE ORDERED ADDITIONAL MANAGEMENT PER CLINICAL COURSE Time Spent With Patient Critical Care time: I spent a total of [] minutes of critical care time on this patient's care today; this time is exclusive of procedural time. Quality VTE Deep Vein Thrombosis/Pulmonary Embolism Present on Admission: No
--- NOTE | 2021-09-17 18:31 | PC.NURSE ---
After Dr. Mcmillan changed the chest tube from pleuravac to heimlich valve and luken strap, chest xray showed increase in pneumothorax. Pt stable, does not c/o distress, says breathing has not changed. Luken strap shows small amount of drainage. was notified and said to call back if pt experiences SOB or other changes. Will continue to monitor.
--- NOTE | 2021-09-17 19:37 | PM.DS.1 ---
History of Present Illness History of Present Illness Date Patient Seen: 08/31/21 Time Patient Seen: 12:20 Chief complaint: Pneumothorax Narrative: Per Dr. Mitchell Hospitalist: Mr. Romano is a 61M with PMH DM, HTN, HL, asthma who began developing shortness of breath about a week ago. He was seen and found to have a small right sided pneumothorax. He denied having any trauma. He was recommended to have outpatient follow up and was not recommended to have a chest tube placed at the time. He developed worsening shortness of breath and interval chest xray showed enlarging pneumothorax. He presented to OSH ED with shortness of breath, found to have large right sided pneumothorax and chest tube was placed. There was no bed available and he was transferred for further treatment. In the hospital he was noted to have a Na 131, bili 1.3, creatinine 0.8, alt/ast 100/65, WBC 7.7. COVID negative. On arrival to the hospital here, he state he was feeling some pain with deep respiration on the right sided near the chest tube insertion site. He had no shortness of breath. PMH: DM, HTN, HL Family history: mother with liver failure Social history: former smoker, active daily EtOH user 6 drinks daily Discharge Providers Provider Date of admission: 08/30/21 19:15 Discharge Date: 09/18/21 Primary care physician: Eliezer Carr MD Consults: 08/31/21 06:48 Consult to General Surgery Routine Comment: Consulting Provider: Raul Mcmillan Reason for consultation: pneumothorax Has provider been notified: No 09/01/21 21:11 Consult to General Surgery Routine Comment: Consulting Provider: Duncan Urban Reason for consultation: Chest tube placement /rt pneumo Has provider been notified: Yes 09/04/21 04:41 Consult to Respiratory Therapy Evaluate & Treat Comment: SOB Physician Instructions: Evaluate and treat 09/04/21 05:41 Consult to General Surgery Routine Comment: Consulting Provider: Raul Mcmillan Reason for consultation: Chest tube placement Has provider been notified: Yes Discharge provider: MIGUEL Henley Summary Hospital Course Discharge Diagnosis: 1.SPONTANEOUS PNEUMOTHORAX.? CHEST TUBE? INSERTED SINCE 08/31.? LEAK? REPORTED.? SURGERY ON BOARD 2. MORBID OBESITY.? EXTENSIVE COUNSELING GIVEN 3. Asthma, chronic, POSSIBLE COPD WITHOUT SIGNS OF ACUTE EXACERBATION.? MONITOR CLOSELY 4. ESSENTIAL HYPERTENSION.? CONTINUE HOME MEDS 5. DIABETES TYPE 2 PER HISTORY.? PFY-CCTUMDE-RIADOZOLG 6. HYPERLIPIDEMIA PER HISTORY Hospital Course: Mr. Romano is a 61M with PMH DM, HTN, HL, asthma who began developed shortness of breath around 08/20/21, and was found to have a small right sided pneumothorax. He was recommended to have outpatient follow up and was not recommended to have a chest tube placed at the time. He developed worsening shortness of breath and interval chest xray showed enlarging pneumothorax at OSH ED which found that his pneumo had developed into a large right sided pneumothorax and chest tube was placed. 09/01/2021 patient was then transferred to [facility]. Patient was found on x-ray that his pneumothorax had resolved and the chest tube was removed. Later that night he developed shortness of breath tachycardia became symptomatic in the was found to have a recurrence of right pneumothorax, resulting in a insertion of chest tube. Dr. Yeboah found that the sentinel hole appeared to be close to the chest wall. On 09/04/2021 the chest tube dislodged and was not in the thoracic cavity of chest, with demonstration of a continued small leak. Dr. Mcmillan repositioned the chest tube. Ongoing attempts have been made for transfer of the patient to a facility with thoracic surgery abilities. When examined by Dr. Urban he verbalized that perhaps initial chest tube incision was causing a sucking pneumothorax. 09/07/2021 Dr. Savage consulted with Dr. Ortiz pulmonology/thoracic surgery at [facility] the initial plan was to change patient to portable water seal and perhaps go home and follow-up as an outpatient. 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 Patient was not able to be released home, as we were unable to stabilize air leak/recurrent pneumothorax. Recommendations for patient treatment have included robotic Bleb section, VATS procedure, blebectomy, and or pleurodesis. On September 17, 2020 hemlich valve was placed. Patient will now be transfered to [facility], excepted by Dr. Fuller hospitalist, and to include consultation by Dr. Maguire thoracic surgeon. Status at Discharge Cognitive/behavioral status at discharge: oriented Functional status at discharge: independent ambulation Overall status at discharge: patient is back to baseline Exam Vital Signs (past 8 hours): - 09/17/21 17:35 Temperature 97.8 F Pulse Rate 56 L Respiratory Rate 16 Blood Pressure 119/57 L Pulse Oximetry 98 Oxygen Delivery Method Room Air Oxygen Flow Rate 0 Narrative Exam Narrative: General: Patient is a well-developed, well-nourished in no distress at this time. HEENT: Normocephalic, atraumatic, extraocular muscles intact, oral pharynx is clear and mucous membranes are moist. Neck is supple and symmetric, trachea is midline, no adenopathy, no thyroid enlargement, nontender, no masses palpated. Negative for JVD Chest: Normal AP diameter and contour without kyphoscoliosis, no nasal flaring, retractions, or tachypneic labored Lungs: Auscultation of all lung baugh are clear without adventitious sounds, wheezes, rhonchi, or rales. Chest tube right side of chest , with air leak, without signs of infection. Cardio: S1 & S2 with regular rate and rhythm without murmur, rubs, or gallops, no carotid bruit, no cardiac pulsations present. Abdomen: Soft nontender, negative for organomegaly, or masses. Bowel sounds are present in all 4 quadrants without guarding or rebound, no CVA tenderness. Musculoskeletal: Muscle strength and tone are equal within normal limits, no deformity, crepitus, effusions, cyanosis, clubbing or edema present. Full range of motion intact radial and pedal pulses are normal. Skin: Warm dry and intact without rashes, ulcerations or petechiae. Neuro: Alert and orientated x3, strength is +5/5 in all extremities, sensation to touch intact, no gross deficits noted of cranial nerves. Psych: Patient has a well-kept appearance, appropriate affect, mental status attitude thought context and judgment are appropriate for age. Objective Labs Result Diagrams: 09/03/21 05:25 09/03/21 05:25 [facility] Medical History (Updated 09/18/21 @ 00:21 by AREN Henely) Essential hypertension Hyperlipidemia due to type 2 diabetes mellitus Mild asthma Non-insulin dependent type 2 diabetes mellitus Family History (Updated 09/18/21 @ 00:23 by AREN Henley) Mother Liver failure Social History household members: none Smoking Status: Former smoker alcohol intake: current Discharge Plan Discharge Plan Patient Disposition: [facility] Other facility: [facility] Under care of provider: Dr. Fuller Hospitalist Discharge Data Primary Care Provider: Eliezer Carr VTE Deep Vein Thrombosis/Pulmonary Embolism Present on Admission: No
[2021-09-17 20:15] VITALS: BP 125/58; PULSE 64; RESP 18; TEMP 36.9; O2SAT 97
[2021-09-17] MEDS: ATORVASTATIN 20 MG TABLET PO (20:44)
[2021-09-17] MEDS: SENNOSIDES 8.6 MG TABLET 17.2 MG PO (20:44)
[2021-09-17] MEDS: LORazepam 1 MG TABLET PO (21:26)
[2021-09-17] MEDS: MELATONIN 3 MG TABLET 9 MG PO (23:37)
[2021-09-18 01:35] VITALS: BP 113/56; PULSE 50; RESP 18; TEMP 36.6; O2SAT 97
[2021-09-18] MEDS: LORazepam 1 MG TABLET PO (02:05)
== END 2021-09-18 02:51 | disposition short-term general hospital (02) | DRG 200 ==
PROVIDERS: Internal Medicine; Admitting Provider Hospitalist; PCP Family Medicine; Referring Provider Emergency Medicine; Visit Provider Hospitalist
DX: J93.83 Other pneumothorax (principal); L03.313 Cellulitis of chest wall; E11.9 Type 2 diabetes mellitus without complications; I10 Essential (primary) hypertension; E78.5 Hyperlipidemia, unspecified; J95.812 Postprocedural air leak; R33.9 Retention of urine, unspecified; E66.01 Morbid (severe) obesity due to excess calories; J45.909 Unspecified asthma, uncomplicated; Z87.891 Personal history of nicotine dependence; Z79.84 Long term (current) use of oral hypoglycemic drugs; Z68.32 Body mass index [BMI] 32.0-32.9, adult; Z20.822 Contact with and (suspected) exposure to COVID-19
CPT/HCPCS: 32551; 36415; 36592; 71045; 71250; 80053; 82962; 84100; 85025; 85610; 87635; 93005; 94760; 94762; 99232; C9803; J0690; J1170; J1642; J1650; J1815; J2060